=== PATIENT | female | born 1995 | race Caucasian/White ===

== ENCOUNTER 2018-08-08 15:58 | Outpatient (REF) | payer OTHER, SELFPAY | END 2018-08-08 16:18 | LOC: LBN 15:58 | PROVIDERS: Visit Provider Nurse Practitioner Gerontology | DX: R30.0 Dysuria (principal); R10.2 Pelvic and perineal pain | CPT/HCPCS: 87480; 87510; 87660 ==

== ENCOUNTER 2021-08-28 16:59 | Outpatient (REF) | payer SELFPAY | END 2021-08-28 17:00 | disposition home or self-care (01) | LOC: LBN 16:59 | PROVIDERS: Visit Provider Obstetrics & Gynecology | DX: R30.0 Dysuria (principal) | CPT/HCPCS: 87077; 87086; 87186 ==

== ENCOUNTER 2021-11-16 16:33 | Outpatient (REF) | payer SELFPAY | END 2021-11-16 16:34 | disposition home or self-care (01) | LOC: LBN 16:33 | PROVIDERS: Visit Provider Obstetrics & Gynecology Gynecology | DX: R30.0 Dysuria (principal) | CPT/HCPCS: 87086 ==

== ENCOUNTER 2023-04-14 11:29 | Emergency (ER) | payer SELFPAY ==
[2023-04-14 11:36] VITALS: BP 124/73; PULSE 91; RESP 15; TEMP 37.1; O2SAT 98
--- NOTE | 2023-04-14 13:14 | W.ED.GENAD ---
Discharge Plan Disposition Patient Disposition: Home Condition: Stable Discharge Details Clinical Impression: Pharyngitis Primary Care Provider: Unknown,Unknown ED Provider: Jerzy Tamayo Home Meds and New Rx's Prescriptions: Continued nitrofurantoin macrocrystal 100 mg capsule 100 mg PO .COMPLEX Qty: 30 2RF Rx Instructions: 100 mg PO after intercourse; must administer with a meal/food Discharge Instructions Instructions: Pharyngitis (ED) Additional Instructions: Please take ibuprofen over the counter. Take 600mg by mouth every 6 hours as needed for pain. Perform salt water gargles multiple times a day over the next 1 week. Please contact your primary care physician to arrange follow-up. Return to the ER immediately for any worsening or new concerning symptoms. Discharge Data Discharge Date/Time-TO BE ENTERED AT DEPARTURE: 04/14/23 13:35 Medical Decision Making 27-year-old female here with pharyngitis. Rapid strep test negative. Suspect viral pharyngitis. Supportive care recommended. Usual customary discharge instructions were reviewed. HPI General Mode of arrival: ambulatory. Date/Time Provider Initiated Documentation: 04/14/23 13:14. Limitations to Documentation: no limitations. Information obtained by: patient. HPI Narrative: 27-year-old female presents with chief complaint of sore throat. Sore throat started yesterday. No fever. No rash. No ear pain. No neck pain. Sore throat is localized to left greater than right. Patient has noticed some white spots in her throat. Related Data Home Medications Medication Instructions Recorded Confirmed nitrofurantoin macrocrystal 100 mg 100 mg PO .COMPLEX #30 caps 11/16/21 04/14/23 capsule Previous Rx's Medication Instructions Recorded nitrofurantoin macrocrystal 100 mg 100 mg PO .COMPLEX #30 caps 11/16/21 capsule Allergies Allergy/AdvReac Type Severity Reaction Status Date / Time No Known Allergies Allergy Unverified 04/14/23 13:16 General Stated Complaint: Sorethroat ANNE: 4 Review of Systems All systems reviewed & are unremarkable except as noted in HPI and below Constitutional Constitutional: Denies fever(s) ENT Ears, Nose, Mouth, and Throat: Reports as per HPI PFSH All Active Problems (Updated 04/14/23 @ 13:15 by Jerzy Tamayo MD) Pharyngitis (Acute) Abscess of left groin (Acute) Labial cyst (Acute) Frequent loose stools (Acute) I recommended patient obtain a PCP now that she has insurance. Dysuria (Acute) Medical History Hx of urinary tract infection 08/2021 UCx: EColi. 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 Rx emperically. Begin nitrofurantoin for postcoital prophylaxis. 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 Sexually active: Yes Do you feel safe in your relationship?: Yes Exam Const General: cooperative and no acute distress [facility] General nose exam: external nose normal Mouth: moist mucous membranes Throat: uvula midline, no peritonsillar masses, posterior oropharynx abnormal erythema and exudates (mild) and no uvular edema Other: no stridor or trismus Eyes Conjunctivae: normal conjunctivae Sclera: normal sclerae Neck Neck: trachea midline and supple Resp Auscultation: clear to auscultation bilaterally, no rales, no rhonchi and no wheezes Cardio Rate: regular rate and not tachycardic Rhythm: regular rhythm Skin General skin exam: no rashes or lesions noted Neuro General: patient alert, patient awake and tone normal Course Vital Signs Vital signs: Vital Signs Temperature 37.1 C 04/14/23 11:36 Pulse 91 H 04/14/23 11:36 Respiratory Rate 15 04/14/23 11:36 Blood Pressure 124/73 04/14/23 11:36 Pulse Oximetry 98 04/14/23 11:36 Temperature 37.1 C 04/14/23 11:36 Temperature Source Temporal Artery Scan 04/14/23 11:36 Pulse 91 H 04/14/23 11:36 Respiratory Rate 15 04/14/23 11:36 Blood Pressure 124/73 04/14/23 11:36 Blood Pressure Position Sitting 04/14/23 11:36 Pulse Oximetry 98 04/14/23 11:36 Oxygen Delivery Method Room Air 04/14/23 11:36 Oxygen Flow Rate 0 04/14/23 11:36 Pain Level 8 08/24/23 11:36 Lab/Test Results Lab/Test Results: 04/14/23 11:39 Tonsil - Not Specified Group A Streptococcus Culture - Pending POC Strep Test-MAGDI(Rapid) Start: 04/14/23 11:48 Freq: .Rapid Strep Test Status: Active Protocol: Document 04/14/23 11:48 MARYAM (Rec: 04/14/23 11:48 MARYAM [id number]) Strep test-MAGDI(Rapid)-POC POC-Strep test-MAGDI (Rapid) Negative POC-Strep test-MAGDI (Rapid) Negative
--- NOTE | 2023-04-14 13:18 | NUR.NOTE ---
Referral given to Care Management for needs PCP, routine follow up. Nursing Note:
[2023-04-14] MEDS: Ibuprofen 600 MG TAB PO (13:19)
--- NOTE | 2023-04-16 11:20 | W.EDPROG ---
Date of service: 04/16/23 Time of Service: 11:20 Medical Decision Making On my shift this patient had a positive result on the callback list as she had strep pharyngitis. She was observed off of antibiotics it appears at her index visit. I attempted to call patient at home to alert her of her result and call in a prescription for penicillin and dexamethasone. Unfortunately the patient did not answer. I did leave her message and requested that she call back to the emergency department. I also called her emergency contact, her mother. I requested that her mother sent her a text with the phone number for the emergency department. I will leave her results on the clipboard for follow-up. Discharge Plan Disposition Patient Disposition: Home Condition: Stable Discharge Details Clinical Impression: Pharyngitis Primary Care Provider: Unknown,Unknown ED Provider: Jerzy Tamayo Home Meds and New Rx's Prescriptions: Continued nitrofurantoin macrocrystal 100 mg capsule 100 mg PO .COMPLEX Qty: 30 2RF Rx Instructions: 100 mg PO after intercourse; must administer with a meal/food Discharge Instructions Instructions: Pharyngitis (ED) Additional Instructions: Please take ibuprofen over the counter. Take 600mg by mouth every 6 hours as needed for pain. Perform salt water gargles multiple times a day over the next 1 week. Please contact your primary care physician to arrange follow-up. Return to the ER immediately for any worsening or new concerning symptoms. Discharge Data Discharge Date/Time-TO BE ENTERED AT DEPARTURE: 04/14/23 13:35
--- NOTE | 2023-04-16 11:24 | ED.PROG_ITS ---
Date of service: 04/16/23 Time of Service: 11:24 Medical Decision Making Patient called back to the emergency department. She reported that she was feeling slightly better. I called [facility] in [place] to prescribe her penicillin V 500 mg twice daily for 10 days in addition to 10 mg oral dexamethasone one-time for her beta-hemolytic strep pharyngitis. I advised ED return if she had difficulty handling her secretions could not tolerate her antibiotics as result of nausea or vomiting or if she had any other concerns. She understood her return indications. Discharge Plan Disposition Patient Disposition: Home Condition: Stable Discharge Details Clinical Impression: Pharyngitis Primary Care Provider: Unknown,Unknown ED Provider: Jerzy Tamayo Home Meds and New Rx's Prescriptions: Continued nitrofurantoin macrocrystal 100 mg capsule 100 mg PO .COMPLEX Qty: 30 2RF Rx Instructions: 100 mg PO after intercourse; must administer with a meal/food Discharge Instructions Instructions: Pharyngitis (ED) Additional Instructions: Please take ibuprofen over the counter. Take 600mg by mouth every 6 hours as needed for pain. Perform salt water gargles multiple times a day over the next 1 week. Please contact your primary care physician to arrange follow-up. Return to the ER immediately for any worsening or new concerning symptoms. Discharge Data Discharge Date/Time-TO BE ENTERED AT DEPARTURE: 04/14/23 13:35
== END 2023-04-14 13:35 | disposition home or self-care (01) ==
PROVIDERS: Emergency Provider Student in an Organized Health Care Education/Training Program
DX: J02.9 Acute pharyngitis, unspecified (principal)
CPT/HCPCS: 87880; 99284; 87081

== ENCOUNTER 2023-05-27 14:28 | Emergency (ER) | payer SELFPAY ==
[2023-05-27 14:34] VITALS: BP 123/72; PULSE 70; RESP 16; TEMP 37.1; O2SAT 98
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
[2023-05-27] MEDS: Ibuprofen 800 MG TAB PO (14:56)
[2023-05-27] MEDS: Acetaminophen 500 MG TAB 1000 MG PO (14:56)
[2023-05-27] MEDS: Lidocaine 5% Patch 1 PATCH TP (14:56)
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
[2023-05-27 16:26] VITALS: BP 128/80; PULSE 72; RESP 20; O2SAT 99
== END 2023-05-27 16:30 | disposition home or self-care (01) ==
PROVIDERS: Emergency Provider Student in an Organized Health Care Education/Training Program
DX: S43.402A Unspecified sprain of left shoulder joint, initial encounter (principal); V47.0XXA Car driver injured in collision with fixed or stationary object in nontraffic accident, initial encounter
CPT/HCPCS: 81025; 99283; 73030

== ENCOUNTER 2023-12-12 06:52 | Emergency (ER) | payer SELFPAY ==
[2023-12-12 06:57] VITALS: BP 126/80; PULSE 132; RESP 18; TEMP 37.1; O2SAT 96
--- NOTE | 2023-12-12 07:17 | W.ED.GENAD ---
Discharge Plan Disposition Patient Disposition: Home Condition: Good Discharge Details Clinical Impression: Strep pharyngitis Primary Care Provider: Unknown,Unknown ED Provider: Ben Ramos Home Meds and New Rx's Prescriptions: New penicillin V potassium 500 mg tablet 500 mg PO BID 7 Days Qty: 14 0RF Discharge Instructions Instructions: Strep Throat (ED) Additional Instructions: At this time you have strep throat with mild tonsillar irritation. Please take 800 mg of ibuprofen every 6 hours and 1000 mg of Tylenol as needed for pain. These are the maximum doses. Please take the antibiotic as directed. Is been sent to your pharmacy on file. If you notice any worsening of your symptoms, or any new symptoms such as vomiting, diarrhea, fever, chills, shortness of breath, chest pain, numbness, weakness, or fainting , please return immediately to the emergency department for reevaluation. Please follow up with your primary care provider as soon as possible for reassessment and reevaluation. As always, it was a pleasure participating in your medical care today. Stand Alone Forms: Work Release Discharge Data Discharge Date/Time-TO BE ENTERED AT DEPARTURE: 12/12/23 09:06 HPI General Date/Time Provider Initiated Documentation: 12/12/23 07:15. HPI Narrative: 28-year-old female with no significant past medical history who presents today for evaluation of sore throat. Patient states that has been present for the last 24 to 36 hours. She admits to chills, she denies vomiting or diarrhea. Mild pain with sore throat, no difficulty swallowing or drinking aside from mild pain. She denies chest pain or shortness of breath. No severe fatigue, no recent mono contacts. She has not taken any NSAIDs for pain. No other complaints at this time. Related Data Home Medications Medication Instructions Recorded Confirmed penicillin V potassium 500 mg 500 mg PO BID 7 days #14 tabs 12/12/23 tablet Previous Rx's Medication Instructions Recorded penicillin V potassium 500 mg 500 mg PO BID 7 days #14 tabs 12/12/23 tablet Allergies Allergy/AdvReac Type Severity Reaction Status Date / Time No Known Allergies Allergy Unverified 12/12/23 06:59 General Stated Complaint: GenMedical ANNE: 3 Review of Systems All systems reviewed & are unremarkable except as noted in HPI and below Exam Narrative Exam Narrative: 1.Const: Well-nourished, Well-developed, appearing stated age 2.Eyes: PERRL, no conjunctival injection, and symmetrical lids. 3.ENT: Atraumatic external nose and ears. Moist MM. Neck: Symmetric, trachea midline, No thyromegaly. Mild erythema in the posterior oropharynx. Tonsils are mild John enlarged, at a grade 3. They are not touching, uvula is midline. No uvular deviation. Mild exudate is noted on posterior left tonsil. 4.CVS: +S1/S2, No murmurs or gallops. Peripheral pulses 2+ and equal in all extremities. Brisk capillary refill in all extremities. 5.RESP: Unlabored respiratory effort. Clear to auscultation bilaterally. No wheezes rales or rhonchi 6.GI: Soft, Nontender/Nondistended, No hepatosplenomegaly. No guarding or rebound. 7.MSK: Normocephalic/Atraumatic, Extremities w/o deformity or ttp No cyanosis or clubbing, Normal movement of all extremities 8.Skin: Warm, Dry. No rashes or lesions. 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 Sensation grossly intact, no focal neurologic deficits. 10.Psych: (AAO) x3. Appropriate mood and affect Course Vital Signs Vital signs: Vital Signs Temperature 37.1 C 12/12/23 06:57 Pulse 132 H 12/12/23 06:57 Respiratory Rate 18 12/12/23 06:57 Blood Pressure 126/80 12/12/23 06:57 Pulse Oximetry 96 12/12/23 06:57 Temperature 37.1 C 12/12/23 06:57 Pulse 132 H 12/12/23 06:57 Respiratory Rate 18 12/12/23 06:57 Blood Pressure 126/80 12/12/23 06:57 Blood Pressure Position Sitting 12/12/23 06:57 Pulse Oximetry 96 12/12/23 06:57 Medical Decision Making 28-year-old female with no significant past medical history who presents today for evaluation of sore throat. Patient states that has been present for the last 24 to 36 hours. She admits to chills, she denies vomiting or diarrhea. Mild pain with sore throat, no difficulty swallowing or drinking aside from mild pain. She denies chest pain or shortness of breath. No severe fatigue, no recent mono contacts. She has not taken any NSAIDs for pain. No other complaints at this time. Exam demonstrates well-appearing female, no nuchal rigidity, tonsils are grade 3 with mild exudate on the left. No urinary symptoms to suggest UTI, no nuchal rigidity to suggest meningitis, no evidence of peritonsillar abscess. Symptoms appear consistent with mild tonsillitis. Patient is tachycardic, does feel notably warm to the touch. Will give Toradol and Decadron for fever and sore throat, will check for mono get basic labs give her liter of lactated Ringer's, check for strep monitor closely and reassess. Laboratory workup is returned, patient's strep test is positive. Will treat with penicillin for home use. Patient feels much better after steroids and Toradol. Tachycardia has notably improved. Blood pressure stable. Symptoms inconsistent with Ludewig's angina, peritonsillar abscess, or other life-threatening etiology at this time. Discussed red flags for which to return. I have extensively reviewed the treatment plan and discharge instructions with the patient. I have addressed all patient concerns at this time. The patient was made aware of what symptoms to monitor for that would warrant a return to the emergency department. Discussed the plan with the patient, they demonstrate verbal understanding and agreement with our assessment and plan at this time. The documentation in this chart was dictated using [employer] dictation software. Please excuse any dictation errors. Quality:SDOH Health Related Social Needs: Health related social needs risk of homeless PFSH All Active Problems (Updated 12/12/23 @ 07:47 by Ben Ramos DO) Strep pharyngitis (Acute) Abscess of left groin (Acute) Labial cyst (Acute) Frequent loose stools (Acute) I recommended patient obtain a PCP now that she has insurance. Dysuria (Acute) Medical History Hx of urinary tract infection 08/2021 UCx: EColi. 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 Rx emperically. Begin nitrofurantoin for postcoital prophylaxis. Social History Smoking/Tobacco Use Status: Current every day Smoking risk assessment performed?: Yes Alcohol Intake: current Alcohol Intake frequency: a few times a month Drug use: Never Housing: house Number of Children: 0 Education Level: high school Details: [employer] current occupation: [employer] Sexually active: Yes Do you feel safe in your relationship?: Yes
[2023-12-12 07:35] LABS: HCT 43.8 % (36.0-46.0); HGB 14.5 g/dL (11.2-15.7); MCH 28.6 pg (27.0-33.0); MCHC 33.1 % (32.0-36.0); MCV 86 fL (80-95); MPV 9.7 fL (8.0-11.0); Platelet Count 359 10^3/uL (130-400); RBC 5.07 10^6/uL (3.93-5.22); RDW 13.1 % (11.7-14.6); RDW-SD 40.5 fL; WBC 21.31 10^3/uL (4.4-10.8)
[2023-12-12] MEDS: Lactated Ringers 1,000 ML 1000 ML IV (07:35)
[2023-12-12] MEDS: Dexamethasone 10 MG/ML VIAL IVP (07:35)
[2023-12-12] MEDS: Ketorolac 15 MG/ML VIAL IVP (07:35)
[2023-12-12 07:39] VITALS: BP 126/80; PULSE 132; RESP 18; TEMP 37.1; O2SAT 96
[2023-12-12 07:50] LABS: Mono Screening Negative (Negative)
[2023-12-12] MEDS: cefTRIAXone 1 GM/50 ML BAG IVPB (07:55)
[2023-12-12 07:56] LABS: ALT 46 U/L (14-59); AST 25 U/L (15-37); Albumin 3.5 g/dL (3.4-5.0); Alkaline Phosphatase 104 U/L (46-116); Anion Gap 13.6 mmol/L (3-11); BUN 10 mg/dL (7-18); Bilirubin, Total 0.8 mg/dL (0.2-1.0); CO2 21.4 mmol/L (21.0-32.0); CREATININE 1.2 mg/dL (0.55-1.02); Calcium 8.9 mg/dL (8.5-10.1); Chloride 99 mmol/L (98-107); Estimated GFR 63.23 (mL/min/1.73m2); Glucose 183 mg/dL (74-106); Potassium 4.1 mmol/L (3.5-5.1); Sodium 134 mmol/L (136-145); Total Protein 8.2 g/dL (6.4-8.2)
[2023-12-12 08:06] LABS: Absolute Neutrophil Count 17.69 10^3/uL (1.2-6.7)
[2023-12-12 08:07] LABS: Absolute Monocyte Count 1.92 10^3/uL (0.1-0.8); Atypical Lymphocytes % 3
[2023-12-12 08:08] LABS: Diff Comment Manual Differential; RBC Morphology Normal
[2023-12-12 08:18] VITALS: BP 106/60; PULSE 98; RESP 18; TEMP 38.2
[2023-12-12] MEDS: Acetaminophen 500 MG TAB 1000 MG PO (08:58)
== END 2023-12-12 09:06 | disposition home or self-care (01) ==
LOC: ER 07:59
PROVIDERS: Emergency Provider Student in an Organized Health Care Education/Training Program
DX: J02.0 Streptococcal pharyngitis (principal)
CPT/HCPCS: 36415; 80053; 87040; 96365; 96375; 99284; 85025; 86308; 87081; J0696; J1100; J1885

== ENCOUNTER 2024-10-22 02:06 | Outpatient (CLI) | payer SELFPAY ==
[2024-10-22 15:58] LABS: Panorama Kit Sent via Fed Ex
[2024-10-22 16:04] LABS: Abs Immature Grans 0.04 10^3/uL (0.0-0.06); Absolute Basophil Count 0.06 10^3/uL (0.0-0.2); Absolute Lymphocyte Count 2.16 10^3/uL (1.2-3.4); Absolute Monocyte Count 1.12 10^3/uL (0.1-0.8); Basophils % 0.5 %; Eosinophils % 2.1 %; HCT 37.1 % (36.0-46.0); HGB 12.5 g/dL (11.2-15.7); Immature Grans % 0.3 %; Lymphocytes % 17.1 %; MCH 28.7 pg (27.0-33.0); MCHC 33.7 % (32.0-36.0); MCV 85 fL (80-95); MPV 9.8 fL (8.0-11.0); Monocytes % 8.9 %; Neutrophils % 71.1 %; Platelet Count 323 10^3/uL (130-400); RBC 4.36 10^6/uL (3.93-5.22); RDW 12.4 % (11.7-14.6); RDW-SD 38.5 fL; WBC 12.64 10^3/uL (4.4-10.8)
[2024-10-22 16:07] LABS: Absolute Eosinophil Count 0.27 10^3/uL (0.0-0.7); Absolute Neutrophil Count 8.99 10^3/uL (1.2-6.7)
[2024-10-22 16:10] LABS: Hemoglobin A1C 5.4 % (<5.7)
[2024-10-23 18:19] LABS: Hepatitis B Surface Ag Negative (Negative)
[2024-10-23 18:49] LABS: Hepatitis C Ab w Rflx HCV PCR Negative (Negative)
[2024-10-23 19:09] LABS: HIV-1/2 Ag & Ab Screen Negative (Negative)
[2024-10-24 10:29] LABS: Rubella IgG Ab (UVM) Negative (See Note); Varicella IgG Antibody Positive (See Note)
[2024-10-26 15:53] LABS: Syphilis IgG w/Reflex Nonreactive (Nonreactive)
== END 2024-10-22 02:07 | disposition home or self-care (01) ==
PROVIDERS: Visit Provider Advanced Practice Midwife
DX: Z34.91 Encounter for supervision of normal pregnancy, unspecified, first trimester (principal); Z68.32 Body mass index [BMI] 32.0-32.9, adult
CPT/HCPCS: 36415; 86787; 86803; 86850; 86900; 86901; 87340; 87389; 87491; 87591; 83036; 85025; 86762; 86780

== ENCOUNTER 2024-10-22 15:37 | Outpatient (REF) | payer SELFPAY ==
[2024-10-24 13:38] LABS: Chlamydia Result Negative (Negative); GC Result Negative (Negative)
== END 2024-10-22 15:38 | disposition home or self-care (01) ==
LOC: LBN 15:37
PROVIDERS: Visit Provider Advanced Practice Midwife
DX: Z34.91 Encounter for supervision of normal pregnancy, unspecified, first trimester (principal)
CPT/HCPCS: 87491; 87591; 87086

== ENCOUNTER 2024-12-14 00:10 | Outpatient (CLI) | payer MEDICAID, SELFPAY ==
--- NOTE | 2024-12-14 06:30 | DI.US_ITS ---
Exam(s) US OB 2-3 TRIMESTER EXAM: US OB 2-3 TRIMESTER CLINICAL HISTORY: anatomy survey,z34.91. TECHNIQUE: Transabdominal obstetrical ultrasound was performed. COMPARISON: US POCUS EXAM from 11/23/2024 FINDINGS: There is a single viable intrauterine gestation with cardiac activity identified-134 bpm. Amniotic fluid: There is a normal amount of amniotic fluid. Placental location: The placenta is anterior grade 1,with no evidence of placenta previa.This from th e tip of placenta to the internal cervical os is 3 cm. The distance between the placental insertion of the umbilical cord and the margin of the placenta is 4.7 cm. ANATOMY: A 3 vessel umbilical cord is seen. A four-chamber cardiac view was obtained. Right and left ventricular outflow tracts were imaged. There are no obvious abnormalities of the spinal column evident. There is no obvious abnormal ity of the anterior abdominal wall. stomach and urinary bladder are identified and there is no evidence of hydronephrosis. No abnormalities of the upper lip region are identified. No evidence of choroid plexus cysts i n the brain. Dating parameters place this at approximately 20 weeks and 1 day gestational age. BPD measures 19 weeks and 4 days HC measures 20 weeks and 0 days AC measures 21 weeks and 0 days FL measures 20 weeks and 0 days Estimated weight is 355 gm-0 pounds 13 ounces Fetus is at the greater than 97th percentile on the Hadlock scale. IMPRESSION:: Single viable intrauterine gestation which is approximately 20 weeks and 1 day gestatio nal age, implying an DIA of 05/02/2025. There are no obvious anomalies evident on today's study. The placenta is anterior with no evidence of placenta previa. There is a normal amount of amniotic fluid. DATA REPOSITORY:
== END 2024-12-14 00:30 ==
PROVIDERS: Visit Provider Advanced Practice Midwife
DX: Z34.92 Encounter for supervision of normal pregnancy, unspecified, second trimester (principal); Z3A.20 20 weeks gestation of pregnancy
CPT/HCPCS: 76805

== ENCOUNTER 2025-02-08 01:00 | Outpatient (CLI) | payer MEDICAID, SELFPAY ==
[2025-02-08 10:44] LABS: HCT 33.6 % (36.0-46.0); HGB 10.8 g/dL (11.2-15.7); MCH 27.6 pg (27.0-33.0); MCHC 32.1 % (32.0-36.0); MCV 86 fL (80-95); MPV 9.8 fL (8.0-11.0); Platelet Count 317 10^3/uL (130-400); RBC 3.92 10^6/uL (3.93-5.22); RDW 12.5 % (11.7-14.6); RDW-SD 38.9 fL; WBC 10.79 10^3/uL (4.4-10.8)
[2025-02-08 11:08] LABS: Glucose,1 Hr (Glucola) 163 mg/dL (80-140)
== END 2025-02-08 01:01 | disposition home or self-care (01) ==
LOC: LBO 01:00
PROVIDERS: Advanced Practice Midwife; Visit Provider Advanced Practice Midwife
DX: Z34.92 Encounter for supervision of normal pregnancy, unspecified, second trimester (principal)
CPT/HCPCS: 36415; 82950; 85027

== ENCOUNTER 2025-02-15 00:44 | Outpatient (CLI) | payer MEDICAID, SELFPAY ==
[2025-02-15 10:45] LABS: Glucose 1 Hour 198 mg/dL
[2025-02-15 12:43] LABS: Glucose 3 Hour 128 mg/dL
== END 2025-02-15 00:45 | disposition home or self-care (01) ==
LOC: LBO 00:44
PROVIDERS: Visit Provider Advanced Practice Midwife
DX: Z34.92 Encounter for supervision of normal pregnancy, unspecified, second trimester (principal)
CPT/HCPCS: 36415; 82951

== ENCOUNTER 2025-02-20 18:12 | Outpatient (CLI) | payer MEDICAID, SELFPAY ==
[2025-02-20 18:23] VITALS: PULSE 83; O2SAT 96
[2025-02-20 18:26] VITALS: BP 112/64; PULSE 78
[2025-02-20 18:32] VITALS: BP 112/64; PULSE 78
--- NOTE | 2025-02-20 19:18 | W.OBNST ---
Date of service: 02/20/25 Time of Service: 19:18 NST Evaluation Reason for NST Reasons for Nonstress Test: DECREASED MOVEMENT Gestational Age Gestational Age in Weeks and Days: 28 Weeks and 6Days Test and Monitor Explained Test/Monitor Explained: Test Explained, Monitor Explained and Patient Verbalized Understanding Vital Signs Blood Pressure: 112/64 Pulse: 78 Urine Results Urine Protein: Negative Urine Ketones: Positive Urine Glucose: Negative Urine Blood: Negative NST Information Date on Monitor: 02/20/25 Time on Monitor: 18:20 Date off Monitor: 02/20/25 Time off Monitor: 19:19 Total Time on Monitor: 59 NST Interventions: PO Hydration and Notify Provider Contraction Frequency: mild irreg NST Evaluation Patient States Movement: Present FHR Baseline: 130 Variability: Moderate 6-25 bpm Accelerations: 10x10 Decelerations: None NST Results: Reactive Note Ultrasound Done: N/A. NST Note NST Reviewed and Verified by: Leanne Del Rosario
[2025-02-20 19:19] VITALS: BP 112/64; PULSE 78
== END 2025-02-20 19:31 | disposition home or self-care (01) ==
LOC: BCD 18:15 → OBS 18:20
PROVIDERS: Visit Provider Advanced Practice Midwife
DX: O36.8131 Decreased fetal movements, third trimester, fetus 1 (principal); Z3A.28 28 weeks gestation of pregnancy
CPT/HCPCS: 59025; G0378

== ENCOUNTER 2025-03-01 01:10 | Outpatient (CLI) | payer MEDICAID, SELFPAY ==
--- NOTE | 2025-03-05 10:44 | W.NUTRFU ---
Date of service: 03/01/25 Time of Service: 09:00 Nutrition Note NOTE: Mari referred to nutrition appt regarding help with diet after dx of gestational diabetes. pt is ~30weeks at out visit and checking her glucose fasting and 1 hour PPG. Fastings pretty conssitent 85-90 with 1 hour PPG with a couple in the 150's and 160's - however she feels like she has made the connection between these outlying higher glucose reading and the type of meal/foods eaten prior. We reviewed handout with more attention spent on identifying carb sources and common serving sizes to equal ~15g CHO. Suggested about ~175g cho per day or ~11 servings per day. Stressed high fiber servings and avoiding starch and sugars without balancing them with lean protein and high fiber foods. Suggested she avoid fruit juice even if 100% and eat whole fruit. I showed her a meal planning resource which she can plug in target macros we reviewed and work towards eating more towards a pattern it demonstrates. Stressed keeping added sugars <20g per day and having 3g fiber or more for starch servings like bread crackers and such. Mari has my contact info should she have any questions or need for follow up or for insulin education should this be necessary at some point during her 3rd trimester. Time Spent in Nutritional Counseling and Treatment: 25 min
== END 2025-03-01 01:11 | disposition home or self-care (01) ==
LOC: DS 01:10
PROVIDERS: Visit Provider Dietitian, Registered
DX: O24.410 Gestational diabetes mellitus in pregnancy, diet controlled (principal)
CPT/HCPCS: 00123; 97802

== ENCOUNTER 2025-03-11 00:28 | Outpatient (CLI) | payer MEDICAID, SELFPAY ==
--- NOTE | 2025-03-11 09:10 | DI.US_ITS ---
Exam(s) US OB PABLITO WEIGHT EXAM: US OB PABLITO WEIGHT CLINICAL HISTORY: gestational diabetes,O24.419 in . TECHNIQUE: Transabdominal obstetrical ultrasound performed. COMPARISON: US US OB 2-3 TRIMESTER from 12/14/2024 FINDINGS:: Number of fetuses: 1 position: CEPHALIC Placental location: ANTERIOR, grade 1. No evidence of previa. BIOMETRIC DATA: BPD: 8.16cm, 32weeks 6days HC: 29.25cm, 32weeks 2days AC: 28.65cm, 32weeks 5days FL: 6.5cm, 33weeks 4days EFW: 2,071.76g, 4lb 8.91oz, 80.8% Composite Age: 32weeks 6days DIA: 04/30/2025 Heart Rate: 136bpm Amniotic fluid index: 26.35cm. Borderline polyhydramnios. IMPRESSION: Ultrasound composite age 32 weeks 6 days. Estimated weight 81 percent. Borderline polyhydramnios with PABLITO of 26.4. DATA REPOSITORY:
== END 2025-03-11 00:48 ==
PROVIDERS: Visit Provider Advanced Practice Midwife
DX: O24.410 Gestational diabetes mellitus in pregnancy, diet controlled (principal); Z3A.29 29 weeks gestation of pregnancy
CPT/HCPCS: 76816

== ENCOUNTER 2025-03-11 10:37 | Outpatient (CLI) | payer MEDICAID, SELFPAY ==
[2025-03-11 10:51] VITALS: BP 110/67; PULSE 59; TEMP 36.8
[2025-03-11 11:07] VITALS: BP 110/67; PULSE 59
[2025-03-11 13:53] VITALS: BP 110/67; PULSE 59; TEMP 36.8
--- NOTE | 2025-03-11 13:53 | W.OBNST ---
Date of service: 03/11/25 Time of Service: 13:53 NST Evaluation Reason for NST Reasons for Nonstress Test: POLYHYDRAMNIOS Gestational Age Gestational Age in Weeks and Days: 31 Weeks and 4Days Test and Monitor Explained Test/Monitor Explained: Test Explained, Monitor Explained and Patient Verbalized Understanding Vital Signs Blood Pressure: 110/67 Pulse: 59 Temperature: 98.2 F NST Information Date on Monitor: 03/11/25 Time on Monitor: 10:45 Date off Monitor: 03/11/25 Time off Monitor: 11:45 Total Time on Monitor: 60 NST Interventions: None NST Evaluation Patient States Movement: Present FHR Baseline: 135 Variability: Moderate 6-25 bpm Accelerations: 15x15 Decelerations: None NST Results: Reactive Note Ultrasound Done: N/A. NST Note NST Reviewed and Verified by: Leanne Del Rosario
== END 2025-03-11 11:45 | disposition other institution (70) ==
LOC: BCD 10:37 → OBS 10:50
PROVIDERS: Visit Provider Advanced Practice Midwife
DX: Z3A.31 31 weeks gestation of pregnancy (principal); O40.3XX1 Polyhydramnios, third trimester, fetus 1
CPT/HCPCS: 59025

== ENCOUNTER 2025-03-29 11:39 | Outpatient (CLI) | payer MEDICAID, SELFPAY ==
[2025-03-29 11:53] VITALS: BP 109/66; PULSE 71; PULSE 73
[2025-03-29 11:54] VITALS: PULSE 74; O2SAT 96
[2025-03-29 12:38] VITALS: BP 109/66; PULSE 71
--- NOTE | 2025-03-29 13:37 | W.OBNST ---
Date of service: 03/29/25 Time of Service: 13:37 NST Evaluation Reason for NST Reasons for Nonstress Test: GDM-DIET CONTROLLED and POLYHYDRAMNIOS Gestational Age Gestational Age in Weeks and Days: 34 Weeks and 1Days Test and Monitor Explained Test/Monitor Explained: Test Explained, Monitor Explained and Patient Verbalized Understanding Vital Signs Blood Pressure: 109/66 Pulse: 71 NST Information Date on Monitor: 03/29/25 Time on Monitor: 11:53 Date off Monitor: 03/29/25 Time off Monitor: 12:22 Total Time on Monitor: 29 NST Interventions: PO Hydration and Other Contraction Frequency: rare NST Evaluation Patient States Movement: Present FHR Baseline: 125 Variability: Moderate 6-25 bpm Accelerations: 15x15 Decelerations: None NST Results: Reactive Note Ultrasound Done: N/A. NST Note NST Reviewed and Verified by: Leanne Del Rosario
[2025-03-29 13:38] VITALS: BP 109/66; PULSE 71
== END 2025-03-29 12:25 ==
LOC: BCD 11:42 → OBS 11:48
PROVIDERS: Visit Provider Advanced Practice Midwife
DX: O24.410 Gestational diabetes mellitus in pregnancy, diet controlled (principal); O40.3XX1 Polyhydramnios, third trimester, fetus 1; Z3A.34 34 weeks gestation of pregnancy
CPT/HCPCS: 59025

== ENCOUNTER 2025-04-04 07:17 | Outpatient (CLI) | payer OTHER, MEDICAID, SELFPAY ==
[2025-04-04 15:23] VITALS: BP 115/62; PULSE 83
[2025-04-04 15:50] VITALS: BP 115/62; PULSE 83; RESP 16; TEMP 36.5
--- NOTE | 2025-04-05 10:04 | W.OBNST ---
Date of service: 04/04/25 Time of Service: 16:45 NST Evaluation Reason for NST Reasons for Nonstress Test: GDM-DIET CONTROLLED Gestational Age Gestational Age in Weeks and Days: 35 Weeks and 0Days Test and Monitor Explained Test/Monitor Explained: Test Explained, Monitor Explained and Patient Verbalized Understanding Vital Signs Blood Pressure: 115/62 Pulse: 83 Temperature: 97.7 F Urine Results Urine Protein: Negative Urine Ketones: Negative Urine Glucose: Negative Urine Blood: Negative NST Information Date on Monitor: 04/04/25 Time on Monitor: 15:15 Date off Monitor: 04/04/25 Time off Monitor: 15:50 Total Time on Monitor: 35 NST Interventions: PO Hydration NST Evaluation Patient States Movement: Present FHR Baseline: 125 Variability: Moderate 6-25 bpm Accelerations: 15x15 Decelerations: None NST Results: Reactive Note Ultrasound Done: N/A. NST Note Note: reactive NST. RTO weekly for NST due to polyhydramnios and GDM. NST Reviewed and Verified by: Shweta Jimenez
[2025-04-05 10:05] VITALS: BP 115/62; PULSE 83; TEMP 36.5
== END 2025-04-04 16:20 | disposition home health service (06) ==
LOC: BCD 07:19 → OBS 15:18
PROVIDERS: Visit Provider Advanced Practice Midwife
DX: O24.410 Gestational diabetes mellitus in pregnancy, diet controlled (principal); Z3A.35 35 weeks gestation of pregnancy
CPT/HCPCS: 59025

== ENCOUNTER 2025-04-08 01:46 | Outpatient (CLI) | payer OTHER, MEDICAID, SELFPAY ==
--- NOTE | 2025-04-08 06:30 | DI.US_ITS ---
Exam(s) US OB PABLITO WEIGHT EXAM: US OB PABLITO WEIGHT CLINICAL HISTORY: polyhydramnios,gest diabetes,O24.419. TECHNIQUE: Transabdominal obstetrical ultrasound was performed. COMPARISON: US US OB PABLITO WEIGHT from 03/11/2025 FINDINGS: There is a single viable intrauterine gestation with cardiac activity [id number] bpm The fetus is presently in cephalic position . Amniotic fluid: There is presently a normal amount of amniotic fluid with an PABLITO of 18.18cm. Placental location: The placenta is anterior grade 2,with no evidence of placenta previa. Dating parameters place this at approximately 35 weeks and 4 days gestational age, implying DIA of 05/09/2025. BPD measures 35 weeks and 1 day HC measures 35 weeks and 6 days AC measures 35 weeks and 2 days FL measures 36 weeks and 0 days Estimated weight is 2690 gm-5 pounds 15 ounces Fetus is at the 46th percentile on the Hadlock scale. IMPRESSION:: Viable 3rd trimester gestation, as described above. The amount of amniotic fluid is within normal limits. DATA REPOSITORY:
== END 2025-04-08 02:06 ==
PROVIDERS: Visit Provider Advanced Practice Midwife
DX: O24.410 Gestational diabetes mellitus in pregnancy, diet controlled (principal); Z3A.35 35 weeks gestation of pregnancy
CPT/HCPCS: 76816

== ENCOUNTER 2025-04-08 07:41 | Outpatient (CLI) | payer OTHER, MEDICAID, SELFPAY ==
[2025-04-08 10:57] VITALS: BP 112/68; PULSE 66; TEMP 36.8
[2025-04-08 11:00] VITALS: BP 112/68; PULSE 66
--- NOTE | 2025-04-08 12:55 | W.OBNST ---
Date of service: 04/08/25 Time of Service: 12:57 NST Evaluation Reason for NST Reasons for Nonstress Test: GDM-DIET CONTROLLED Gestational Age Gestational Age in Weeks and Days: 35 Weeks and 4Days Test and Monitor Explained Test/Monitor Explained: Test Explained, Monitor Explained and Patient Verbalized Understanding Vital Signs Blood Pressure: 112/68 Pulse: 66 Temperature: 98.2 F Urine Results Urine Protein: Positive Urine Ketones: Positive Urine Glucose: Negative Urine Blood: Negative NST Information Date on Monitor: 04/08/25 Time on Monitor: 10:57 Date off Monitor: 04/08/25 Time off Monitor: 11:55 Total Time on Monitor: 58 NST Interventions: PO Hydration and Reposition Patient Contraction Frequency: 4-7 min NST Evaluation Patient States Movement: Present FHR Baseline: 135 Variability: Moderate 6-25 bpm Accelerations: 15x15 Decelerations: None NST Results: Reactive Note Ultrasound Done: N/A. NST Note Note: Mari is here for weekly NST for GDM. US shows PABLITO 18. RTO for weekly NSTs. NST Reviewed and Verified by: Shweta Jimenez
[2025-04-08 12:56] VITALS: BP 112/68; PULSE 66; TEMP 36.8
== END 2025-04-08 12:42 ==
LOC: BCD 07:43 → OBS 10:51
PROVIDERS: Visit Provider Advanced Practice Midwife
DX: O24.410 Gestational diabetes mellitus in pregnancy, diet controlled (principal); Z3A.35 35 weeks gestation of pregnancy
CPT/HCPCS: 59025

== ENCOUNTER 2025-04-19 07:11 | Outpatient (CLI) | payer OTHER, MEDICAID, SELFPAY ==
[2025-04-19 10:59] VITALS: BP 118/66; PULSE 75; TEMP 37.2
[2025-04-19 11:12] VITALS: BP 118/66; PULSE 75
[2025-04-19 12:21] LABS: HCT 35.0 % (36.0-46.0); HGB 11.3 g/dL (11.2-15.7); MCH 26.8 pg (27.0-33.0); MCHC 32.3 % (32.0-36.0); MCV 83 fL (80-95); MPV 10.6 fL (8.0-11.0); Platelet Count 247 10^3/uL (130-400); RBC 4.21 10^6/uL (3.93-5.22); RDW 14.2 % (11.7-14.6); RDW-SD 42.8 fL; WBC 10.12 10^3/uL (4.4-10.8)
[2025-04-19 12:33] LABS: Hemoglobin A1C 5.5 % (<5.7)
[2025-04-19 12:43] VITALS: BP 118/66; PULSE 75; TEMP 37.2
--- NOTE | 2025-04-19 12:43 | W.OBNST ---
Date of service: 04/19/25 Time of Service: 12:43 NST Evaluation Reason for NST Reasons for Nonstress Test: GDM-DIET CONTROLLED Gestational Age Gestational Age in Weeks and Days: 37 Weeks and 1Days Test and Monitor Explained Test/Monitor Explained: Test Explained, Monitor Explained and Patient Verbalized Understanding Vital Signs Blood Pressure: 118/66 Pulse: 75 Temperature: 99.0 F Weight: 204 lb NST Information Date on Monitor: 04/19/25 Time on Monitor: 10:50 Date off Monitor: 04/19/25 Time off Monitor: 11:38 Total Time on Monitor: 48 NST Interventions: PO Hydration NST Evaluation Patient States Movement: Present FHR Baseline: 135 Variability: Moderate 6-25 bpm Accelerations: 15x15 Decelerations: None NST Results: Reactive Note Ultrasound Done: N/A. NST Note Note: Weekly NST NST Reviewed and Verified by: Leanne Del Rosario
== END 2025-04-19 12:16 | disposition other institution (70) ==
LOC: BCD 07:11 → OBS 10:52
PROVIDERS: Visit Provider Advanced Practice Midwife
DX: O24.410 Gestational diabetes mellitus in pregnancy, diet controlled (principal); Z3A.37 37 weeks gestation of pregnancy
CPT/HCPCS: 36415; 85027; 59025; 83036; 87081

== ENCOUNTER 2025-04-21 15:15 | Outpatient (CLI) | payer OTHER, MEDICAID, SELFPAY ==
[2025-04-21 15:35] VITALS: BP 126/76; PULSE 69; TEMP 37.2
[2025-04-21 15:44] VITALS: BP 126/76; PULSE 69
--- NOTE | 2025-04-21 16:00 | W.PM.PROGNOT ---
Date of Service Date of service: 04/21/25 Time of Service: 16:00 Assessment and Plan Assessment and plan (1) 37 weeks gestation of : Status: Acute (2) Migraine headache with aura: Status: Acute Assessment and plan: Clinical history and exam are consistent with migraine with aura. Differential diagnosis also includes pre-eclampsia. As she is normotensive, does not have hyperreflexia and has a history of migraines with aura, migraine is the favored diagnosis. Will obtain a PC ratio, CBC and CMP to further exclude PEC. In the meantime, will treat the headache with Tylenol and caffeine (through the route of 2 cups of coffee). Should this not work, could also try metoclopramide and diphenhydramine. Oral hydration and a quiet / dark environement were encouraged. surveillance is reassuring. Will assess status 1 hour after having taken Tylenol. Addendum 1704: 1 hour after receiving Tylenol and caffeine, Mari reports that her headache is fully resolved. She continues also to have full resolution of visual changes. Her blood pressure remains normal. PC ratio, CBC and CMP are all normal. Mari was reassured that trhe clinical picture remains consistent with a migraine, not PEC. She was advised to call again is she develops another headache or any other warnings signs. Otherwise, follow-up for routine care in 5 days. Subjective Subjective Interval history since last seen: Mari is a 29 year old at 37 weeks 3 days gestation who presents to L&D triage with complaints of visual changes and a headache. She describes that earlier this afternoon, she had right then bilateral visual changes like [she] had looked in the light too long, and blurry along the edges that resolved and were immediately followed by a strong headache. She has not taken anything for the headache. She has a history of migraines, though none have occurred since becoming . Some of her previous migraines were preceded by aura. She has only ever needed Tylenol in the past for treatment. She has no known triggers. ROS: Neuro: as above, notable for headche and now resolved visual changes GI: no upper abdominal pain CV: no edema OB: good FM, not aware of contractions, no LOF, no VB course is notable for: 1. Works at the [employer], referred to [employer] for Medicaid assistance 2. cfDNA nml male, wait on CF until has insurance 3. BMI 32, HgbA1c 5.4, start low dose ASA @ [address]+ 2 yrs ago, treated at [facility], initial neg 5. PT referral for low back pain sent 01/11 6. Pap due 7. Rectal bleeding with BM at 24 weeks- tucks and hemorrhoid cream with HC after every BM, exam if no improvement. 8. 27 wk glucola 163, 3 hr [phone], GDM @ 28 wks, start QID home monitoring, DM educator consult done 03/05. 8a. 32 week growth US- 80% ile, PABLITO 26, daily postprandial elevations reported in pt's log. - 03/22/25: pt made dietary changes and has almost all normal FS 9. Mild anemia at 27 wks, hgb 10.8, start oral iron supplement. At 37 wks hgb=11.3 10. Borderline Polyhydramnios - PABLITO 26, repeat US in 4 weeks. testing weekly at 34 weeks 10a. 04/08 -PABLITO 18 , EFW 46 %ile. Objective Last Vital Signs Pulse 69 04/21/25 15:44 BP 126/76 04/21/25 15:44 VS: normotensive Constitutional: well-nourished, well-developed, alert, NAD Respiratory: effort is unlabored Cardiovascular: trace edema bilateral LEXT Gastrointestinal: non-tender to palpation, tone normal without rigidity or guarding, no masses Genitourinary: - uterus: gravid, normal shape, contractions q 4-6 minutes, mild to palpation Neurologic: DTRs +1 left patella / +1 right patella, clonus absent right and left sides Skin and Subcutaneous Tissue: no rashes, no lesions, no areas of discoloration Fetus: - baseline 135, moderate variability, + accels, no decels Time Spent with Patient Time Spent with Patient: >50 minutes Time was spent: preparing to see the patient(eg.review tests), obtaining and/or reviewing separately otained hiistory, ordering medications,tests, procedures, indepentently interpreting results and counseling the patient
[2025-04-21] MEDS: Acetaminophen 500 MG TAB 1000 MG PO (16:06)
[2025-04-21 16:23] LABS: Abs Immature Grans 0.03 10^3/uL (0.0-0.06); HCT 35.9 % (36.0-46.0); HGB 11.6 g/dL (11.2-15.7); Immature Grans % 0.3 %; MCH 26.7 pg (27.0-33.0); MCHC 32.3 % (32.0-36.0); MCV 83 fL (80-95); MPV 10.4 fL (8.0-11.0); Platelet Count 257 10^3/uL (130-400); RBC 4.34 10^6/uL (3.93-5.22); RDW 14.2 % (11.7-14.6); RDW-SD 42.5 fL; WBC 9.93 10^3/uL (4.4-10.8)
--- NOTE | 2025-04-21 16:29 | W.OBNST ---
Date of service: 04/21/25 Time of Service: 16:29 NST Evaluation Reason for NST Reasons for Nonstress Test: OTHER, SEE COMMENT Reason for NST Other: Headache, r/o pre-eclampsia Gestational Age Gestational Age in Weeks and Days: 37 Weeks and 3Days Test and Monitor Explained Test/Monitor Explained: Test Explained and Monitor Explained Vital Signs Blood Pressure: 126/76 Pulse: 69 Temperature: 99.0 F Weight: 204 lb Urine Results Urine Protein: Negative Urine Ketones: Negative Urine Glucose: Negative Urine Blood: Negative NST Information Date on Monitor: 04/21/25 Time on Monitor: 15:40 NST Interventions: PO Hydration Note Ultrasound Done: N/A. NST Note Note: Reactive NST. See separate progress note. NST Reviewed and Verified by: Nivia Jones
[2025-04-21 16:31] VITALS: BP 126/76; PULSE 69; TEMP 37.2
[2025-04-21 16:39] LABS: ALT 24 U/L (14-59); AST 29 U/L (15-37); Albumin 2.5 g/dL (3.4-5.0); Alkaline Phosphatase 156 U/L (46-116); Anion Gap 11.6 mmol/L (3-11); BUN 6 mg/dL (7-18); Bilirubin, Total 0.4 mg/dL (0.2-1.0); CO2 21.4 mmol/L (21.0-32.0); Calcium 8.9 mg/dL (8.5-10.1); Chloride 104 mmol/L (98-107); Estimated GFR 130.12 (mL/min/1.73m2); Glucose 74 mg/dL (74-106); Potassium 3.7 mmol/L (3.5-5.1); Sodium 137 mmol/L (136-145); Total Protein 7.0 g/dL (6.4-8.2)
[2025-04-21 16:46] LABS: PROTEIN < 6.0 mg/dL
[2025-04-21 17:00] VITALS: BP 118/76; PULSE 64
[2025-04-22 08:22] VITALS: BP 117/66; PULSE 68
== END 2025-04-21 17:05 ==
LOC: BCD 15:16 → OBS 15:19
PROVIDERS: Visit Provider Advanced Practice Midwife
DX: Z3A.37 37 weeks gestation of pregnancy (principal); G43.109 Migraine with aura, not intractable, without status migrainosus; O99.891 Other specified diseases and conditions complicating pregnancy
CPT/HCPCS: 80053; 59025; 82565; 84156; 85025

== ENCOUNTER 2025-04-26 07:16 | Outpatient (CLI) | payer OTHER, MEDICAID, SELFPAY ==
[2025-04-26 11:12] VITALS: BP 109/60; PULSE 72; TEMP 37.1
[2025-04-26 11:14] VITALS: BP 109/60; PULSE 72
[2025-04-26 14:08] VITALS: BP 109/60; PULSE 72; TEMP 37.1
--- NOTE | 2025-04-26 14:08 | W.OBNST ---
Date of service: 04/26/25 Time of Service: 14:08 NST Evaluation Reason for NST Reasons for Nonstress Test: GDM-DIET CONTROLLED Gestational Age Gestational Age in Weeks and Days: 38 Weeks and 1Days Test and Monitor Explained Test/Monitor Explained: Test Explained and Monitor Explained Vital Signs Blood Pressure: 109/60 Pulse: 72 Temperature: 98.8 F Urine Results Urine Protein: Negative Urine Ketones: Negative Urine Glucose: Negative Urine Blood: Negative NST Information Date on Monitor: 04/26/25 Time on Monitor: 11:08 Date off Monitor: 04/26/25 Time off Monitor: 11:34 Total Time on Monitor: 26 NST Interventions: None NST Evaluation Patient States Movement: Present FHR Baseline: 135 Variability: Moderate 6-25 bpm Accelerations: 15x15 Decelerations: None NST Results: Reactive Note Ultrasound Done: N/A. NST Note Note: Plan for NST/PABLITO next week IOL tentatively scheduled for 05/08 NST Reviewed and Verified by: Leanne Del Rosario
== END 2025-04-26 11:35 ==
LOC: BCD 07:17 → OBS 11:06
PROVIDERS: Visit Provider Advanced Practice Midwife
DX: O24.410 Gestational diabetes mellitus in pregnancy, diet controlled (principal); Z3A.38 38 weeks gestation of pregnancy
CPT/HCPCS: 59025

== ENCOUNTER 2025-05-03 07:23 | Outpatient (CLI) | payer OTHER, MEDICAID, SELFPAY ==
[2025-05-03 11:00] VITALS: BP 117/75; PULSE 78; TEMP 37.1
[2025-05-03 11:20] VITALS: BP 117/75; PULSE 78
--- NOTE | 2025-05-03 11:49 | W.OBNST ---
Date of service: 05/03/25 Time of Service: 11:49 NST Evaluation Reason for NST Reasons for Nonstress Test: GDM-DIET CONTROLLED Gestational Age Gestational Age in Weeks and Days: 39 Weeks and 1Days Test and Monitor Explained Test/Monitor Explained: Test Explained, Monitor Explained and Patient Verbalized Understanding Vital Signs Blood Pressure: 117/75 Pulse: 78 Temperature: 98.8 F Weight: 204 lb 8 oz Urine Results Urine Protein: Negative Urine Ketones: Negative Urine Glucose: Negative Urine Blood: Negative NST Information Date on Monitor: 05/03/25 Time on Monitor: 11:05 Date off Monitor: 05/03/25 Time off Monitor: 11:34 Total Time on Monitor: 29 NST Interventions: PO Hydration NST Evaluation Patient States Movement: Present FHR Baseline: 135 Variability: Moderate 6-25 bpm Accelerations: 15x15 Decelerations: None NST Results: Reactive NST Results Other: Dr. Paige in for PABLITO. Note Ultrasound Done: PABLITO Indication: Other Largest Vertical Pocket: 7.3 Total PABLITO: 17.4 Other Pertinent Findings: Presentation (Cephalic) Coding for PABLITO w/NST: Completed Exam. NST Note Note: Has a category 1, reactive NST with a heart rate baseline of 135. Baby's been moving and active. She has occasional irregular contractions. Cervical exam performed at patient's request. A 1 cm 50%, soft, mid position. Patient reports good glycemic control with fasting sugars of less than 90 and 1 hour postprandials of less than 140. Information to thermostatic controls supervisor for plan of care and potential induction NST Reviewed and Verified by: Salena Paige
[2025-05-03 11:51] VITALS: BP 117/75; PULSE 78; TEMP 37.1
--- NOTE | 2025-05-03 21:41 | W.OBNST ---
Date of service: 05/03/25 Time of Service: 21:43 NST Evaluation Reason for NST Reasons for Nonstress Test: GDM-DIET CONTROLLED Gestational Age Gestational Age in Weeks and Days: 39 Weeks and 1Days Test and Monitor Explained Test/Monitor Explained: Test Explained, Monitor Explained and Patient Verbalized Understanding Vital Signs Blood Pressure: 117/75 Pulse: 78 Temperature: 98.8 F Weight: 204 lb 8 oz Urine Results Urine Protein: Negative Urine Ketones: Negative Urine Glucose: Negative Urine Blood: Negative NST Information Date on Monitor: 05/03/25 Time on Monitor: 11:05 Date off Monitor: 05/03/25 Time off Monitor: 11:34 Total Time on Monitor: 29 NST Interventions: PO Hydration NST Evaluation Patient States Movement: Present FHR Baseline: 135 Variability: Moderate 6-25 bpm Accelerations: 15x15 Decelerations: None NST Results: Reactive NST Results Other: Dr. Paige in for PABLITO. Note Ultrasound Done: N/A. NST Note Note: Mari is here for NST for GDM. Reactive NST. PABLITO performed by Dr Paige an it was 7. I discussed IOL with Mari due to GDM and it is scheduled for 05/08. SVE performed by Dr Paige. 1/50% NST Reviewed and Verified by: Shweta Jimenez
[2025-05-03 21:43] VITALS: BP 117/75; PULSE 78; TEMP 37.1
== END 2025-05-03 12:31 | disposition other institution (70) ==
LOC: BCD 07:26 → OBS 10:58
PROVIDERS: Visit Provider Advanced Practice Midwife
DX: O24.410 Gestational diabetes mellitus in pregnancy, diet controlled (principal); Z3A.39 39 weeks gestation of pregnancy
CPT/HCPCS: 59025

== ENCOUNTER 2025-05-08 10:28 | Inpatient (IN) | payer OTHER, MEDICAID, SELFPAY ==
[2025-05-08] VITALS (83 sets, daily range): BP systolic 112–139; BP diastolic 72–86; PULSE 0–98; RESP 16–20; TEMP 36.7–37; O2SAT 97–98
[2025-05-08 11:06] LABS: HCT 34.4 % (36.0-46.0); HGB 11.2 g/dL (11.2-15.7); MCH 26.8 pg (27.0-33.0); MCHC 32.6 % (32.0-36.0); MCV 82 fL (80-95); MPV 10.5 fL (8.0-11.0); Platelet Count 240 10^3/uL (130-400); RBC 4.18 10^6/uL (3.93-5.22); RDW 14.5 % (11.7-14.6); RDW-SD 43.0 fL; WBC 8.43 10^3/uL (4.4-10.8)
--- NOTE | 2025-05-08 11:26 | HPE_ITS ---
Date of service: 05/08/25 Time of Service: 11:26 Assessment and Plan Assessment and plan (1) Encounter for induction of labor: Status: Acute Assessment and plan: A: 29 yo G1 @ 39+6 wks, diet controlled GDM, planned IOL Unfavorable cvx with thakkar score of 1, category 1 tracing GBS neg, Rh+, increased risks for SD and PPH noted Risks/benefits of IOL reviewed with pt incl. possible arrest disorder or distress requiring c/s Pt is planning for epidural, consents to cervical ripening and IOL P: Admitted to L&D, CBC, and T&S, plan is for dual ripening Misoprostel per guidelines and hilario balloon to be placed Dr. Paige consulting (2) Gestational diabetes mellitus (GDM) affecting first : Status: Acute OB-HPI Labor/Delivery History of Present Illness Reason for Visit: IOL Chief Complaint: Scheduled Induction of Labor Indication for Induction: Gestational Diabetes (diet controlled). DIA Calculator Estimated Delivery Date Method Current WG Current Estimate 05/09/25 Ultrasound #1 39w 6d Other Estimates 05/01/25 LMP (Certain) 41w 0d History of Present Expected Delivery Route/Plan - CNM FOB/boyfriend - Giovany Lema (2 other children, healthy) BB yes to circ Rubella non-immune, offer MMR May want epidural; Giovany, Mom Apurva, thelma Suarez and Brooke Danielle for l abor support. GBS negative IOL tentatively booked for 05/08 Specific Issues/Plan 1. Works at the [employer], referred to [employer] for Medicaid assistance 2. cfDNA nml male, wait on CF until has insurance 3. BMI 32, HgbA1c 5.4, start low dose ASA @ [address]+ 2 yrs ago, treated at [facility], initial neg 5. PT referral for low back pain sent 01/11 6. Pap due 7. Rectal bleeding with BM at 24 weeks- tucks and hemorrhoid cream with HC after every BM, exam if no improvement. 8. 27 wk glucola 163, 3 hr [phone], GDM @ 28 wks, start QID home monitoring, DM educator consult done 03/05. 8a. 32 week growth US- 80% ile, PABLITO 26, daily postprandial elevations repor justin in pt's log. - 03/22/25: pt made dietary changes and has almost all normal FS 9. Mild anemia at 27 wks, hgb 10.8, start oral iron supplement. At 37 wks hgb=11.3 10. Borderline Polyhydramnios - PABLITO 26, repeat US in 4 weeks. testing weekly at 34 weeks 10a. 18 -PABLITO 18 , EFW 46 %ile. Assessment: History Reviewed & Current Informed Consent Informed Consent: Induction of Labor and Risk,Benefits,Alternatives Discussed Review of Systems All systems reviewed & are unremarkable except as noted in HPI and below PFSH All Active Problems (Updated 05/08/25 @ 11:21 by Leanne Del Rosario) Encounter for induction of labor (Acute) Migraine headache with aura (Acute) Gestational diabetes mellitus (GDM) affecting first (Acute) Back pain affecting (Acute) Rubella non-immune status, antepartum (Acute) Adult BMI 32.0-32.9 kg/sq m (Acute) (Acute) Frequent loose stools (Acute) I recommended patient obtain a PCP now that she has insurance. Medical History (Updated 05/08/25 @ 11:21 by Leanne Del Rosario) Abscess of left groin Labial cyst Polyhydramnios 37 weeks gestation of Dysuria History of chlamydia infection February 2024, treated Positive test Hx of urinary tract infection 08/2021 UCx: EColi. 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 Rx emperically. Begin nitrofurantoin for postcoital prophylaxis. Family History (Updated 02/25/25 @ 09:38 by Shweta Jimenez CNM) Sister Gestational diabetes Father Hypertension Paternal Uncle Diabetes Social History Smoking/Tobacco Use Status: Never Smoking risk assessment performed?: Yes Alcohol Intake: never Drug use: Never Housing: house Number of Children: 0 Education Level: high school Details: [employer] - Sean current occupation: [employer] Sexually active: Yes Do you feel safe in your relationship?: Yes History History 1 Para 0 Hx # Term Pregnancies 0 Multiple births 0 Hx # Pregnancies 0 Ectopic pregnancies 0 AB induced 0 Hx Number of Living Children 0 AB spontaneous 0 Meds Allergies and Home Medications Allergies Allergy/AdvReac Type Severity Reaction Status Date / Time No Known Allergies Allergy Verified 03/29/25 11:02 Home Medications ?Medication ?Instructions ?Recorded ?Confirmed ?Type vits no.126-ferrous fum tab PO 09/21/2404/26 History 28 mg iron-folic acid 800 mcg tablet (Classic ) aspirin 81 mg tablet,delayed 81 mg PO DAILY #90 tabs 0 10/22/24 04/26/25 Rx release ferrous sulfate 325 mg (65 mg 325 mg PO DAILY #30 tabs 02/08/25 04/26/25 Rx iron) tablet alcohol swabs (Alcohol Prep Pads) 1 pad topical QID #1 00 ea 02/15/25 04/26/25 Rx blood sugar diagnostic (FreeStyle #100 ea 02/15/2501/13 Rx Lite Strips) blood-glucose meter (FreeStyle #1 ea 02/15/25 04/26/25 Rx Lite Meter kit) lancets 28 gauge (FreeStyle #100 ea 02/15/25 04/26/25 Rx Lancets) docusate sodium 100 mg capsule 100 mg PO BID #60 caps 02/25/25 04/26/25 Rx (Colace) Exam Physical Exam Vital signs: Temp Pulse Resp BP Pulse Ox 98.5 F 79 18 112/72 97 05/08/25 10:40 05/08/25 10:43 05/08/25 10:40 05/08/25 10:40 05/08/25 10:43 Vital Signs Reviewed: Yes Constitutional Constitutional: no acute distress, average body habitus and cooperative Detailed Labor and Delivery Exam Dilation: 1 Effacement (%): 30 station: -4 Cervix position: posterior Consistency: firm THAKKAR Score(Cervical Ripeness Score): 1 Amniotic Membrane Status: Intact Monitor Mode: External Contraction Frequency(min): 1 in 10 minutes, pt does not appreciate Contraction Intensity: Mild Fetus A Heart Rate Baseline: 140 Monitor Accelerations: Present Monitor Decelerations: None Variability: Moderate (6-25 BPM) Categories: Category I Est. Weight: 7 lb 11.459 oz Est. Weight: 3500 gms HEENT Exam HEENT Exam: Normal Neck Exam Neck Exam: Normal Chest/Brest/Axilla Exam Chest Exam: Normal Breast Exam Breast Exam: Not Done Respiratory Exam Respiratory Exam: Normal Cardiovascular Exam Cardiovascular Exam: Normal Abdominal Exam Abdominal Exam: Normal (Gravid, nontender, S=D) Rectal Exam Rectal Exam: Normal Exam Exam: Normal Extremities Exam Extremities Exam: Normal Back/Spine/Pelvis Exam Back Exam: Normal Pelvis Adequate: Yes Skin Exam Skin Exam: Normal Neurological Exam Neurological Exam: Normal Psychiatric Exam Psychiatric Exam: Normal Results Results Group Beta Strep: Negative Blood Type: A+ Rubella Status: Nonimmune Varicella Immunity: Immune Abnormal Lab Findings: Abnormal Labs 05/08/25 10:47 Hct 34.4 L MCH 26.8 L Risk Assessment Risk for Shoulder Dystocia Historical/Initial OB: POSITIVE FOR: Pre- BMI>30; NEGATIVE FOR: Pelvic Abnormality, Previous Shoulder Dystocia or Previous Macrosomia 36 Weeks: POSITIVE FOR: Current Gestational DM 40 Weeks: NEGATIVE FOR: EFW> 4500 gms, Maternal Weight Gain >40lb or Post Dates Increased Risk?: Yes Delivery Plan @ 36wks: Delivery Plan @ 40 wks: , IOL Risk for Pre-Eclampsia Date Initiated/Initials: to start at 12 wks. JK Yes, if one or more: NEGATIVE FOR: Hx Pre-E/Gest HTN, Chronic HTN, Multiple Gestation, Pre-gestational DM, Renal Disease, Systemic Lupus or APA Syndrome Yes, if 2 or more: POSITIVE FOR: Nulliparity and BMI>30; NEGATIVE FOR: Age>= 35 yrs, >10yr btwn pregnancies, ethinicty, Mother/Sister w/ Pre-E or Previous IUGR Risk for Post- Hemorrhage Initial: NEGATIVE FOR: Multiple Gestation, Previous PPH, Known Clotting Deficiency, Grand Multiparity or Anticoagulation 36 Weeks: NEGATIVE FOR: Anemia, hgb<10, Low platelets(thrombocytopenia), Gestational HTN or Pre-E, Polyhydraminios or EFW>4500gms 40 Weeks: NEGATIVE FOR: Anemia, hgb<10, Low platelets (thrombocytopenia), Gestation HTN or Pre-E, Polyhydraminios or EFW>4500gms At Risk?: Yes (due to IOL process) Counseled re: Active Management: Yes Risks Reviewed Risks Reviewed Upon Admission: Yes
[2025-05-08] MEDS: miSOPROStol 50 MCG TAB PO (11:50)
[2025-05-08] MEDS: miSOPROStol 25 MCG TAB PO ×2 (16:18→20:31)
--- NOTE | 2025-05-08 20:15 | W.PM.OBNL1 ---
Date of service: 05/08/25 Time of Service: 20:16 Informed Consent Informed Consent: Induction of Labor and Risk,Benefits,Alternatives Discussed Pelvic Exam Dilation: 2.5 Effacement (%): 80 station: -4 Cervix Position: anterior Consistency: medium Comments: 60 ml hilario balloon remains in place Contractions Monitor Mode: External Contraction Frequency(min): clusters of 3-4 contractions every 4-6 minutes Intensity: Mild/Moderate Fetus A Monitor: External (US) Heart Rate Baseline: 140 Variability: Moderate (6-25 BPM) Categories: Category I Accelerations: 15 X 15 Decelerations: None Amniotic Membrane Status: Intact Assessment and Plan Assessment and plan (1) Encounter for induction of labor: Status: Acute Assessment and plan: A: IOL for GDM via dual cervical ripening starting with unfavorable benson score of 1 Category 1 tracing, 1 hr postprandial glucose 103 Miso 50 mcg and then 25 mcg given PO, hilario balloon in place since 1230 Category 1 tracing, membranes intact Benson score advanced to 7 with cervical changes but without descent P: Will give third dose of miso, 25 mcg PO Plan removal of hilario balloon at 0030 Pt is considering epidural anesthesia once the hilario is out AROM is planned if head descends otherwise consider pitocin augmentation Dr. Paige consulting Objective Abnormal lab results 05/08/25 Range/Units 10:47 Hct 34.4 L (36.0-46.0) % MCH 26.8 L (27.0-33.0) pg Temp Pulse Resp BP Pulse Ox 98.1 F 95 H 16 139/86 98 05/08/25 19:27 05/08/25 20:13 05/08/25 19:27 05/08/25 19:27 05/08/25 19:27 Laboratory Results WBC 8.43 10^3/uL (4.4-10.8) 05/08/25 10:47 RBC 4.18 10^6/uL (3.93-5.22) 05/08/25 10:47 Hgb 11.2 g/dL (11.2-15.7) 05/08/25 10:47 Hct 34.4 % (36.0-46.0) L 05/08/25 10:47 MCV 82 fL (80-95) 05/08/25 10:47 MCH 26.8 pg (27.0-33.0) L 05/08/25 10:47 MCHC 32.6 % (32.0-36.0) 05/08/25 10:47 RDW 14.5 % (11.7-14.6) 05/08/25 10:47 Plt Count 240 10^3/uL (130-400) 05/08/25 10:47 MPV 10.5 fL (8.0-11.0) 05/08/25 10:47 ABO/Rh A Positive 05/08/25 10:47 Antibody Screen NEGATIVE 05/08/25 10:47 Vital Signs Reviewed: Yes Subjective Interval history since last seen: Pt has generally been in bed most the day though has ambulated in her room, tolerating PO intake and voiding qs. Feeling increased contraction sensations which are not comfortable but pt is coping well, heating pad to back.
[2025-05-09] VITALS (305 sets, daily range): BP systolic 99–169; BP diastolic 55–87; PULSE 59–115; RESP 16–18; TEMP 36.6–37.9; O2SAT 98; BMI 33.9
--- NOTE | 2025-05-09 00:29 | PGE_ITS ---
Date of service: 05/09/25 Time of Service: 00:30 Informed Consent Informed Consent: Induction of Labor and Risk,Benefits,Alternatives Discussed Pelvic Exam Dilation: 3 Effacement (%): 90 station: -4 Cervix Position: anterior Consistency: medium BISHOPS Score(Cervical Ripeness Score): 8 Contractions Monitor Mode: External (using [place]) Contraction Frequency(min): irregular, ranging 2-5 minutes Intensity: Mild/Moderate Fetus A Monitor: External (US) ([place]) Heart Rate Baseline: 140 Variability: Moderate (6-25 BPM) Categories: Category I Accelerations: Present Decelerations: None Amniotic Membrane Status: Intact Assessment Note: head not engaged in pelvis, too high for AROM by CNM Assessment and Plan Assessment and plan (1) Encounter for induction of labor: Status: Acute Assessment and plan: A: Bolton removed @ 12 hrs (saline withdrawn to remove atraumatically from cvx) Benson score advanced to 8, head at -4 station Category 1 tracing. Discussed rest with pt and timing of epidural P: Final miso dose 25 mcg now for total 125 mcg given PO Pt will try Ambien to assist with sleep Will opt for pit augmentation in 4 hours if no spontaneous descent Pt plans epidural prior to further procedures but is coping well at this time Objective Vital Signs Reviewed: Yes Subjective Interval history since last seen: Pt feeling contractions across her mid and lower abd as well as back pain, contractions not much stronger than earlier in the evening though blood tinged vaginal mucous has been noted. Feeling tired, asking if an epidural would help her sleep but not sure she needs regional anesthesia for the contractions yet. RN has started IV access.
[2025-05-09] MEDS: Zolpidem 10 MG TAB PO (00:47)
[2025-05-09] MEDS: miSOPROStol 25 MCG TAB (00:47)
--- NOTE | 2025-05-09 06:52 | PGE_ITS ---
Date of service: 05/09/25 Time of Service: 06:52 Informed Consent Informed Consent: Induction of Labor, Regional Anesthesia and Risk,Benefits,Alternatives Discussed Pelvic Exam Dilation: 3 Effacement (%): 90 station: -3 Cervix Position: anterior Consistency: soft BISHOPS Score(Cervical Ripeness Score): 9 Contractions Monitor Mode: External ([place]) Contraction Frequency(min): irregular, ranging 1 -7 minutes Intensity: Mild Fetus A Monitor: External (US) ([place]) Heart Rate Baseline: 145 Variability: Moderate (6-25 BPM) Categories: Category I Accelerations: Present Decelerations: None Amniotic Membrane Status: Intact Assessment and Plan Assessment and plan (1) Encounter for induction of labor: Status: Acute Assessment and plan: A: HD#2, IOL for diet controlled GDM, cervical ripening completed, no active labor yet Pt requests early epidural anesthesia to be in place prior to AROM and pit mar Category 1 tracing, descent overnight to -3 station, Benson score is 9 Afebrile and normotensive; fasting fingerstick glucose this morning=91 P: Risks and benefits of regional anesthesia and continued IOL reviewed with pt Pt states she feels prepared to continue once her epidural is in place Discussed with pt increased risk of arrest of labor d/t GDM and poor descent Pt states she hopes to avoid a c/s but verbalizes understanding of possibility Objective Vital Signs Reviewed: Yes Subjective Interval history since last seen: Pt was able to get a few hours sleep after taking ambien, contractions have rece ded
--- NOTE | 2025-05-09 07:20 | ANES.PREOP_ITS ---
General Info Date of Service Date Performed: 05/09/25 Height: 5 ft 5 in Weight: 92.533 kg Body Mass Index (BMI): 33.9 Meds Allergies and Home Medications Allergies Allergy/AdvReac Type Severity Reaction Status Date / Time No Known Allergies Allergy Verified 03/29/25 11:02 Home Medication ?Medication ?Instructions ?Recorded vits no.126-ferrous fum tab PO 09/21/24 28 mg iron-folic acid 800 mcg tablet (Classic ) aspirin 81 mg tablet,delayed 81 mg PO DAILY #90 tabs 0 10/22/24 release ferrous sulfate 325 mg (65 mg 325 mg PO DAILY #30 tabs 02/08/25 iron) tablet alcohol swabs (Alcohol Prep Pads) 1 pad topical QID #1 00 ea 02/15/25 blood sugar diagnostic (FreeStyle #100 ea 02/15/25 Lite Strips) blood-glucose meter (FreeStyle #1 ea 02/15/25 Lite Meter kit) lancets 28 gauge (FreeStyle #100 ea 02/15/25 Lancets) docusate sodium 100 mg capsule 100 mg PO BID #60 caps 02/25/25 (Colace) Current Visit Medications: Current Medications Generic Name Dose Route Start Last Admin Trade Name Freq PRN Reason Stop Dose Admin Fentanyl/Ropivacaine 200 ml 05/09/25 07:00 Fentanyl/Ropivacaine 2 Mcg/Ml And 0.1% 200 Ml Cadd Cassette EP DIRECTED SANIA Ringer's Solution 1,000 mls @ 200 mls/hr 05/08/25 10:30 IV INFUSION SANIA Ringer's Solution 500 mls @ 500 mls/hr 05/09/25 06:53 IV 05/09/25 07:52 BOLUS ONE IV Miscellaneous Supplies 1 each 05/08/25 10:30 Iv Access IV DIRECTED SANIA Sodium Chloride 0 ml 05/08/25 10:29 Normal Saline Flush 10 Ml Syr IVP PRN PRN Sodium Chloride 0 ml 05/08/25 20:00 Normal Saline Flush 10 Ml Syr IVP BID SANIA Sodium Chloride 0 ml 05/08/25 10:29 Normal Saline 10 Ml Vial IJ DIRECTED PRN Terbutaline Sulfate 0.25 mg 05/08/25 10:29 Terbutaline 1 Mg/Ml Vial SC PRN PRN PFSH Active Problems Active Problems: Problem Status Onset Code Encounter for induction of labor Acute Z34.90 Migraine headache with aura Acute G43.109 Gestational diabetes mellitus (GDM) affecting first Acute O24.419 Back pain affecting Acute O99.891, M54.9 Rubella non-immune status, antepartum Acute O09.899, Z28.39 Adult BMI 32.0-32.9 kg/sq m Acute Z68.32 Acute Z34.90 Frequent loose stools Acute R19.7 Medical History Medical History (Updated 05/08/25 @ 11:21 by eLanne Del Rosario) Abscess of left groin Labial cyst Polyhydramnios 37 weeks gestation of Dysuria History of chlamydia infection February 2024, treated Positive test Hx of urinary tract infection 08/2021 UCx: EColi. 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 Rx emperically. Begin nitrofurantoin for postcoital prophylaxis. Tobacco Smoking/Tobacco Use Status: Never Passive smoking exposure: No Alcohol Alcohol Intake: never Substance Use Substance use: Never Prental History History 2 1 Para 0 Hx # Term Pregnancies 0 Multiple births 0 Hx # Pregnancies 0 Ectopic pregnancies 0 AB induced 0 Hx Number of Living Children 0 AB spontaneous 0 Vital Signs and Lab Results Vital Signs Most Recent Vital Signs in EMR: Most Recent Vital Signs Temp Pulse Resp BP Pulse Ox 36.7 C 96 H 16 99/55 L 98 05/09/25 03:25 05/09/25 07:17 05/09/25 03:25 05/09/25 03:25 05/08/25 19:27 Point of Care Results Point of Care Results: Finger Stick Blood Glucose 91 05/09/25 07:11 Lab Results 05/08/25 10:47 Blood Type / Crossmatch: 2 Antibody Screen NEGATIVE 05/08/25 Complete Blood Count: 2 WBC, (4.4-10.8) 8.43 10^3/uL 05/08/25, 10:47 RBC, (3.93-5.22) 4.18 10^6/uL 05/08/25, 10:47 Hgb, (11.2-15.7) 11.2 g/dL 05/08/25, 10:47 Hct, (36.0-46.0) 34.4 % L 05/08/25, 10:47 Plt Count, (130-400) 240 10^3/uL 05/08/25, 10:47 Complete Metabolic Panel: 2 Sodium, (136-145) 137 mmol/L 04/21/25, 16:14 Potassium, (3.5-5.1) 3.7 mmol/L 04/21/25, 16:14 Chloride, (98-107) 104 mmol/L 04/21/25, 16:14 Carbon Dioxide, (21.0-32.0) 21.4 mmol/L 04/21/25, 16 :14 BUN, (7-18) 6 mg/dL L 04/21/25, 16:14 Creatinine, (0.55-1.02) 0.5 mg/dL L 04/21/25, 16:14 Est GFR (CKD-EPI 2020), (mL/min/1.73m2) 130.12 04/21/25, 16:14 Calcium, (8.5-10.1) 8.9 mg/dL 04/21/25, 16:14 Albumin, (3.4-5.0) 2.5 g/dL L 04/21/25, 16:14 Glucose, (74-106) 74 mg/dL 04/21/25, 16:14 Hemoglobin A1c, (<5.7) 5.5 % 04/19/25, 12:15 Liver Function Panel: 2 ALT, (14-59) 24 U/L 04/21/25, 16:14 AST, (15-37) 29 U/L 04/21/25, 16:14 Anesthesia Assessment and Plan Anesthesia History Personal History: No History of Anesthesia Complications Family History: No Family History of Anesthesia Complications Exercise Tolerance Exercise Tolerance: Metabolic Equivalents>4 Pertinent Negatives Pertinent Negatives: No Symptoms of GERD, No Major Cardiovascular Symptoms or Complaints, No Major Pulmonary Symptoms or Complaints and No History of CVA/TIA Cardiac & Pulmonary Exam Cardiac Exam: Normal S1/S2 Heart Sounds Pulmonary Exam: Clear Bilateral Breath Sounds Implantable Cardiac Device Does patient have a Pacemaker or an ICD?: No Airway Exam Known Difficult Airway: No Mallampati Class: 2 Mouth Opening: Normal (> 3cm) Thyromental Distance: Greater than 3 cm Neck Range of Motion: Full ROM Neck Circumference: Normal Teeth Condition: Normal Dentition ASA Classification ASA Score: ASA 2 Emergency Case?: No NPO Status NPO Status: NPO Clears >2 hours, Solids >8 hours Status Status: Confirmed Anesthesia Plan Resuscitation Status: Full Code Anesthesia Technique: Epidural Anesthesia Airway Planned: Natural Airway Pain Management: Surgeon and patient request nerve block Monitors Used: Standard Monitors
[2025-05-09] MEDS: Lactated Ringers 500 ML IV (07:59)
[2025-05-09] MEDS: FentaNYL/ROPIvacaine 2 mcg/ml and 0.1% 200 ML CADD Cassette EP ×2 (08:23→17:50)
--- NOTE | 2025-05-09 08:26 | W.ANESNEU ---
Epidural/Spinal Catheter Date Performed: 05/09/25 Procedure Start: 08:01 Procedure Stop: 08:12 Requesting Provider: Leanne Del Rosario Procedure Location: Obstetrics Reason Performed: Labor Epidural Standard Monitors Applied: Blood Pressure, SpO2 and See EMR for corresponding vital signs Patient Position: Sitting Sedation Given (Indicate Dose Given): No Sedation given Patient Mental Status: Awake Sterility: Hand Hygiene, Surgical Cap, Surgical Mask, Sterile Gloves and Chlorhexidine Procedure Location: L3-L4 Interspace Epidural Needle: Tuohy 18 Gauge Needle Length: 3.5 Inch Needle Approach: Midline Epidural Procedure: Skin Prepped, Sterile Drape Placed, 1% Lidocaine to skin and subcutaneous tissue with 25G needle, Tuohy Needle placed, REGINALD to Saline Used, Epidural Catheter Placed, Negative Heme, Negative CSF Flow and Tuohy Needle Removed Catheter Placed?: Catheter Placed Test Dose (Indicate Dose Given): 5ml 1.5% Lidocaine with 1:200K Epinephrine Given and Negative Test Dose Loss of Resistance Depth (cm): 6 Catheter depth at skin (cm): 10 Dressing: [place] Dressing Placed, Mastisol Used and Dressing reinforced with Tape Epidural Provider Bolus (Indicate Dose Given): Total bolus dose given in 3-5 ml divided doses and Total Ropivacaine 0.1% with Fentanyl 2mcg/ml Given from pump. (ml) Dose:: 10 Additives (Indicate Dose Given ): None Infusion Medication: Medication Infusion Began Medication Infusion: Ropivacaine 0.1% with Fentanyl 2mcg/ml Maintenance Infusion Rate (ml/hour): 10 PCEA Bolus Dose (ml): 5 Block Level: N/A Paresthesia: Left (down left hip when placing catheter) Paresthesia Duration: Transient Ultrasound: Not Used Number of Attempts (See previous attempts in note section): 1 Procedure Tolerated: No Complications and Patient tolerated well Procedure Outcome: Successful Performed By: Deion Chase Other (not listed above): Mandy zamora
[2025-05-09] MEDS: Oxytocin/Normal Saline 30 UNIT/500 ML BAG 2 UNITS IV (09:45)
--- NOTE | 2025-05-09 11:08 | W.PM.OBNL1 ---
Date of service: 05/09/25 Time of Service: 11:08 Informed Consent Informed Consent: Induction of Labor, Risk,Benefits,Alternatives Discussed and Other (Pt consents to AROM) Pelvic Exam Dilation: 4 Effacement (%): 50 station: -3 Cervix Position: anterior Fetus A Monitor: External (US) ([place]) Heart Rate Baseline: 145 Variability: Moderate (6-25 BPM) Categories: Category I Accelerations: Present Decelerations: None Amniotic Membrane Status: Ruptured Rupture Method: Artifical Amniotic Fluid: Clear Amount: moderate Date of Membrane Rupture: 05/09/25 Time of Membrane Rupture: 10:59 Assessment and Plan Assessment and plan (1) Encounter for induction of labor: Status: Acute Assessment and plan: A: Pt consents to AROM, pitocin augmentation is at 4u/min Category 1 tracing continues, epidural effective P: Clear fluid returned on AROM, pt tolerated procedure well FHT remain cat 1, will continue pitocin augmentation Monitor for progression of labor Objective Vital Signs Reviewed: Yes Subjective Interval history since last seen: Resting in bed, visiting with family and friends present for support, appears comfortable, pt denies concerns or questions at this time
--- NOTE | 2025-05-09 13:22 | PGE_ITS ---
Date of service: 05/09/25 Time of Service: 13:22 Informed Consent Informed Consent: Induction of Labor and Risk,Benefits,Alternatives Discussed Pelvic Exam Dilation: 4.5 Effacement (%): 50 station: -2 Consistency: soft Contractions Monitor Mode: External Contraction Frequency(min): irregular q2-4 Fetus A Monitor: External (US) Heart Rate Baseline: 130 Variability: Moderate (6-25 BPM) Categories: Category I Accelerations: Present Decelerations: Early Amniotic Membrane Status: Ruptured Assessment and Plan Assessment and plan (1) Encounter for induction of labor: Status: Acute Assessment and plan: A: IOL in progress, epidural in place, pitocin at 8u/min Progressed to 4-5/50% anterior, soft, vtx -2/-3 station AROM for large amounts of fluid since 1100 Epidural adjusted to improve pt comfort by FASHION ILLUSTRATOR Category 1 tracing noted using NOVI monitor P: Continue to moritor for progress, discussed use of IUPC with pt Recheck for progress in 2 hrs, will advise IUPC placement if no appreciable cvx change or descent Will notify Dr. Moreno of pt status and plan of care Objective Temp Pulse Resp BP Pulse Ox 98.2 F 70 16 126/73 98 05/09/25 12:35 05/09/25 13:21 05/09/25 11:30 05/09/25 12:56 05/09/25 07:55 Laboratory Results WBC 8.43 10^3/uL (4.4-10.8) 05/08/25 10:47 RBC 4.18 10^6/uL (3.93-5.22) 05/08/25 10:47 Hgb 11.2 g/dL (11.2-15.7) 05/08/25 10:47 Hct 34.4 % (36.0-46.0) L 05/08/25 10:47 MCV 82 fL (80-95) 05/08/25 10:47 MCH 26.8 pg (27.0-33.0) L 05/08/25 10:47 MCHC 32.6 % (32.0-36.0) 05/08/25 10:47 RDW 14.5 % (11.7-14.6) 05/08/25 10:47 Plt Count 240 10^3/uL (130-400) 05/08/25 10:47 MPV 10.5 fL (8.0-11.0) 05/08/25 10:47 ABO/Rh A Positive 05/08/25 10:47 Antibody Screen NEGATIVE 05/08/25 10:47 Vital Signs Reviewed: Yes Objective Narrative Objective Narrative: Large amounts of amniotic fluid have been drainng Suggestion of early decels noted on tracing Pitocin @ 8u/min currently Subjective Interval history since last seen: pt reported increased discomfort, FASHION ILLUSTRATOR came and made adjustments with some minor improvement for pt comfort.
--- NOTE | 2025-05-09 14:33 | W.OBCONSULT ---
Date of service: 05/09/25 Time of Service: 14:34 Assessment and Plan Assessment and plan (1) Gestational diabetes: Status: Acute (2) Migraines: Status: Chronic (3) Obesity affecting : Status: Acute (4) 40 weeks gestation of : Status: Acute Assessment and plan: 05/09/2025 (Josh): Introduced myself to the patient along with the svp digital ad sales. We discussed the patient's labor progress as well as the shared concerns between the svp digital ad sales's and is Obstetric staff of potential macrosomia. We began to discuss the potential for consideration of section. We discussed that risks associated with include, but are not limited to, bleeding, blood clots to the legs into the lungs, damage to surrounding tissues, and infection. We discussed that it is still reasonable to currently pursue vaginal delivery based on the modest change between her recent exams and overall reassuring assessment. Patient states that she would like to continue to pursue vaginal delivery for now. We discussed placing an IUPC for accurate titration of Pitocin and repositioning for assistance with pain management. I will continue to be available. History of Present Illness Narrative: 29 yo at 40 0/7 as dated by 7 wk US (DIA 05/09/2025) undergoing induction of labor for GDMA1 at term. Patient was induced yesterday with Cytotec and cervical Bolton. Bolton was removed at midnight last night, and she has since been ruptured to clear fluid as of 11 am this morning, and augmented with Pitocin. She has an epidural in place; however, she is having difficulties with an area of pain in her right hip. Her blood sugars have been well controlled while on the unit without medication. Review of Systems All systems reviewed & are unremarkable except as noted in HPI and below PFSH All Active Problems (Updated 05/09/25 @ 14:57 by Etelvina Moreno, DO) 40 weeks gestation of (Acute) Obesity affecting (Acute) Migraines (Chronic) Gestational diabetes (Acute) Encounter for induction of labor (Acute) Migraine headache with aura (Acute) Gestational diabetes mellitus (GDM) affecting first (Acute) Back pain affecting (Acute) Rubella non-immune status, antepartum (Acute) Adult BMI 32.0-32.9 kg/sq m (Acute) (Acute) Frequent loose stools (Acute) I recommended patient obtain a PCP now that she has insurance. Medical History Abscess of left groin Labial cyst Polyhydramnios 37 weeks gestation of Dysuria History of chlamydia infection February 2024, treated Positive test Hx of urinary tract infection 08/2021 UCx: EColi. 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 Rx emperically. Begin nitrofurantoin for postcoital prophylaxis. 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 [employer] Sexually active: Yes Do you feel safe in your relationship?: Yes History History 1 Para 0 Hx # Term Pregnancies 0 Multiple births 0 Hx # Pregnancies 0 Ectopic pregnancies 0 AB induced 0 Hx Number of Living Children 0 AB spontaneous 0 Exam Narrative Exam Narrative: general: Well nourished female, somewhat dissheveled pulm: No overt respiratory distress abd: non-tender, gravid ext: +1 edema noted equally bilaterally : Most recently performed 1300 and was found to be 4 / 50 / -2 FHT: Cat 1 [place]: irregular Results Last Vital Signs Temp 98.2 F 05/09/25 13:30 Pulse 69 05/09/25 14:29 Resp 17 05/09/25 13:30 BP 137/79 05/09/25 14:26 Pulse Ox 98 05/09/25 07:55 Labs 05/08/25 10:47 Labs: Rubella non-immune; GBS negative status
[2025-05-09] MEDS: Lactated Ringers 1,000 ML 125 ML IV ×2 (14:47→20:31)
--- NOTE | 2025-05-09 15:41 | W.ANESNEU ---
Epidural/Spinal Catheter Date Performed: 05/09/25 Procedure Start: 15:17 Procedure Stop: 15:40 Requesting Provider: Leanne Del Rosario Procedure Location: Obstetrics Reason Performed: Labor Epidural Standard Monitors Applied: Blood Pressure, SpO2 and See EMR for corresponding vital signs Patient Position: Sitting Sedation Given (Indicate Dose Given): No Sedation given Patient Mental Status: Awake Sterility: Hand Hygiene, Surgical Cap, Surgical Mask, Sterile Gloves, Sterile Drape/Sheet and Betadine Procedure Location: L3-L4 Interspace Epidural Needle: Tuohy 18 Gauge Needle Length: 3.5 Inch Needle Approach: Midline Epidural Procedure: Skin Prepped, Sterile Drape Placed, 1% Lidocaine to skin and subcutaneous tissue with 25G needle, Tuohy Needle placed, REGINALD to Saline Used, Epidural Catheter Placed, Negative Heme, Negative CSF Flow and Tuohy Needle Removed Catheter Placed?: Catheter Placed Test Dose (Indicate Dose Given): 5ml 1.5% Lidocaine with 1:200K Epinephrine Given and Negative Test Dose Loss of Resistance Depth (cm): 6 Catheter depth at skin (cm): 12 Dressing: [place] Dressing Placed, Mastisol Used and Dressing reinforced with Tape Epidural Provider Bolus (Indicate Dose Given): Total bolus dose given in 3-5 ml divided doses and Total Ropivacaine 0.1% with Fentanyl 2mcg/ml Given from pump. (ml) Dose:: 5ml Additives (Indicate Dose Given ): None Infusion Medication: Medication Infusion Began Medication Infusion: Ropivacaine 0.1% with Fentanyl 2mcg/ml Maintenance Infusion Rate (ml/hour): 12 PCEA Bolus Dose (ml): 6 Block Level: N/A Paresthesia: None Ultrasound: Not Used Number of Attempts (See previous attempts in note section): 1 Procedure Tolerated: No Complications and Patient tolerated well Procedure Outcome: Successful Procedure Comment:: pt c/o R lower abd pain and motor function remained intact in R leg. attempted increased in infusion and repositioning. options explained with patient and she opted to reattempt epidural. Performed By: Mandy Flynn Supervised By: Deion Chase
--- NOTE | 2025-05-09 18:38 | W.PM.OBNL1 ---
Date of service: 05/09/25 Time of Service: 18:30 Informed Consent Informed Consent: Induction of Labor and Risk,Benefits,Alternatives Discussed Pelvic Exam Dilation: 8 Effacement (%): 90 station: -1 Contractions Monitor Mode: Internal Contraction Frequency(min): q2-4 IUPC resting tone (mmHg): 20 IUPC [place] units: 120 Fetus A Monitor: External (US) Heart Rate Baseline: 145 Variability: Moderate (6-25 BPM) Categories: Category I Accelerations: Present Decelerations: Early Amniotic Membrane Status: Ruptured Assessment and Plan Assessment and plan (1) Encounter for induction of labor: Status: Acute Assessment and plan: A: IOL continuing, pitocin at 14u/min, epidural anesthesia more effective after replacement IUPC placed to assist with pitocin titration Category 1 tracing overall, pt resting mostly on right side Bloody show noted, good progress in dilation and descent palpable P: Continue pitocin augmentation, position for comfort and facilitate rotation/descent Dr. Moreno aware of pt status Continue to monitor for progression Objective Temp Pulse Resp BP Pulse Ox 98.2 F 83 17 113/65 98 05/09/25 17:16 05/09/25 19:17 05/09/25 17:30 05/09/25 19:17 05/09/25 07:55 Laboratory Results WBC 8.43 10^3/uL (4.4-10.8) 05/08/25 10:47 RBC 4.18 10^6/uL (3.93-5.22) 05/08/25 10:47 Hgb 11.2 g/dL (11.2-15.7) 05/08/25 10:47 Hct 34.4 % (36.0-46.0) L 05/08/25 10:47 MCV 82 fL (80-95) 05/08/25 10:47 MCH 26.8 pg (27.0-33.0) L 05/08/25 10:47 MCHC 32.6 % (32.0-36.0) 05/08/25 10:47 RDW 14.5 % (11.7-14.6) 05/08/25 10:47 Plt Count 240 10^3/uL (130-400) 05/08/25 10:47 MPV 10.5 fL (8.0-11.0) 05/08/25 10:47 ABO/Rh A Positive 05/08/25 10:47 Antibody Screen NEGATIVE 05/08/25 10:47 Vital Signs Reviewed: Yes Subjective Interval history since last seen: 2nd epidural is more effective than first though reports LLQ pain with contractions. Trying nitrous but it is not very helpful, has heating pad to area.
--- NOTE | 2025-05-09 22:21 | W.PM.OBNL1 ---
Date of service: 05/09/25 Time of Service: 22:21 Informed Consent Informed Consent: Induction of Labor and Risk,Benefits,Alternatives Discussed Pelvic Exam Dilation: 10 station: +3 Contractions Monitor Mode: Internal Contraction Frequency(min): q2-4 IUPC resting tone (mmHg): 20 IUPC [place] units: 140 Fetus A Monitor: External ([place]) Heart Rate Baseline: 145 Variability: Moderate (6-25 BPM) Categories: Category I Accelerations: Present Decelerations: Early Amniotic Membrane Status: Ruptured Assessment and Plan Assessment and plan (1) Encounter for induction of labor: Status: Acute Assessment and plan: A: 2nd stage, huddle completed, category 1 tracing, epidural anesthesia, pitocin @ 14u/min P: Pt beginning to push with coaching and support Small amt of caput palpable and skull just behind pubic arch Risks for SD and PPH discussed with nursing and mitigation steps in place Anticipate vaginal delivery, Dr. Moreno inhouse Objective Temp Pulse Resp BP Pulse Ox 99.2 F 83 16 137/67 98 05/09/25 21:14 05/09/25 22:18 05/09/25 21:14 05/09/25 22:18 05/09/25 07:55 Laboratory Results WBC 8.43 10^3/uL (4.4-10.8) 05/08/25 10:47 RBC 4.18 10^6/uL (3.93-5.22) 05/08/25 10:47 Hgb 11.2 g/dL (11.2-15.7) 05/08/25 10:47 Hct 34.4 % (36.0-46.0) L 05/08/25 10:47 MCV 82 fL (80-95) 05/08/25 10:47 MCH 26.8 pg (27.0-33.0) L 05/08/25 10:47 MCHC 32.6 % (32.0-36.0) 05/08/25 10:47 RDW 14.5 % (11.7-14.6) 05/08/25 10:47 Plt Count 240 10^3/uL (130-400) 05/08/25 10:47 MPV 10.5 fL (8.0-11.0) 05/08/25 10:47 ABO/Rh A Positive 05/08/25 10:47 Antibody Screen NEGATIVE 05/08/25 10:47 Vital Signs Reviewed: Yes Subjective Interval history since last seen: Pt quite comfortable with epidural working well, responding well to instructions for pushing in 2nd stage
[2025-05-10] VITALS (55 sets, daily range): BP systolic 101–137; BP diastolic 55–75; PULSE 66–130; RESP 16–18; TEMP 36.6–37.3; O2SAT 93–99
--- NOTE | 2025-05-10 01:07 | OBVDS_ITS ---
Date of service: 05/10/25 Time of Service: 01:07 OB Labor/ Delivery Information Baby A Delivery Delivery Method: Assisted Presentation: Cephalic Cephalic Position: Vertex Vertex Position: Right Occipital Anterior Cord Description-Baby A: 3 Vessels Amniotic Fluid: Clear Quantitative Blood Loss: 225 Delivery Outcome: Liveborn Note: 29 yo G1 now P1001 underwent a 40 week vacuum-assisted vaginal delivery to an 8 lbs 5 oz viable baby boy ([place]) of an intact perineum under epidural anesthesia. I was called to the room by the gas engineer for concerns of poor progression. Upon entering the room, I found the patient laboring with the nurses and support team. SVE found the baby +2, and the mother made good progress with coached pushing efforts. The general labor forklift operator was requested to attend the delivery. The patient had reportedly voided as recently as an hour prior. Assessment of the pelvic cavity was reassuring for adequate space. We discussed the potential need for vacuum based on maternal exhaustion and intermittently concerning monitoring. We discussed that vacuum-assisted vaginal delivery is associated with an increased risk of lacerations both for the mother as well as the tissue. They are also associated with bleeding under and within the skull. Mother verbalized understanding and consented if it was deemed necessary. We began pushing and she maintained slow, but consistent progression with active coaching. By the time she was , the heart tones began to more persistently stay in the 90's, at which point we discussed assisting with the vacuum. She consented to this. Patient was expected to have about an 8 lbs baby. Assessment of the scalp was suggestive of JUAN PABLO positioning. The kiwi vacuum was carefully placed 2 cm anterior to the posterior fontanelle and centered over the sagittal suture and then suction was increased to the green zone with her next push. Her pushing effort was facilitated, and the head delivered in JUAN PABLO without issue. The vacuum was immediately released, and the patient was instructed not to push. I attempted delivery of the anterior shoulder but was unsuccessful, and a shoulder dystocia was called. The mother was positioned into McRobert's position and suprapubic pressure was applied appropriately by the gas engineer. When this failed to release the arm, I attempted delivery of the posterior shoulder. With this attempt, a loose nuchal cord was appreciated and easily reduced. At this point, I again attempted to deliver the posterior shoulder. I was able to get the posterior shoulder to shrug and then rotate approximately 45 degrees with a clockwise pressure on the posterior body of the posterior shoulder. This succsseful dislodged the shoulder and allowed for delivery of the remainder of the body. The entirety of the shoulder dystocia lasted 45 seconds. Upon delivery, the mouth and nose were bulb suctioned. The cord was promptly double clamped and cut by the gas engineer, and the baby was immediately placed into the awaiting warmer. A section of cord was co llected and set aside. Pitocin was opened for bolusing. The placenta delivered within 15 minutes of delivery without issue and fully intact. A modest second degree perineal laceration was repaired with 2-0 Vicryl. Good hemostasis was appreciated. Based on mother feeling warm during the delivery and borderline temperatures noticed in the mother throughout the pushing efforts as well as in the baby upon delivery, we discussed doing one round of Ampicillin and Gentamycin. The patient was agreeable to this. Shortly after delivery, the nurse reported a moderate, persistent trickle of vaginal bleeding, for which transexamic acid was ordered. Mother and baby tolerated the procedure well. Providers Nurse Business Objects Consultant: Leanne Del Rosario Nurse: Celsa Poe Nurse: Lisa Del Rosario Labor/Delivery Information Number of Babies in Womb: 1 Steroids Given: None Reason Steroids Not Administered: N/A Group Beta Strep: Negative Antibiotics Administered: No Rubella Status: Nonimmune Blood Type: A+ Varicella Immunity: Immune Shoulder Dystocia: Yes Stages of Labor Complete Dilatation Date: 05/09/25 Complete Dilatation Time: 22:00 ROM Baby A: 05/09/25 ROM Baby A: 10:59 ROM Total Time- Baby A: [id number] Delivery Date-Baby A: 05/10/25 Infant Delivery Time-Baby A: 00:28 Labor Stage 2 Duration: 2 hours and 28 minutes Placenta Delivery Date-Baby A: 05/09/25 Placenta Delivery Time-Baby A: 00:36 Labor-Stage 3 Duration: -1432 minutes Placenta Status: Delivered Baby A Infant Gender: Male Gestational Status: Term (39-41.6 wks) Gestational Age in Weeks/Days: 40 Weeks and 1 Days weight: 8333 lb 7.569 oz Length-Baby A: 20.87 in Head Circumference-Baby A: 13.39 in Shoulder Dystocia Delivery Times Date of Delivery of Head: 05/10/25 Time of Delivery of the Head: 00:27 Head to Body Delivery Interval(minutes): 1 Arm Under Sympisis Arm Under Symphisis: Right
[2025-05-10] MEDS: TRANEXAMIC ACID/SOD. CHL. 1,000 MG/100 ML BAG 600 MG IVPB (01:17)
[2025-05-10] MEDS: AMPICILLIN SODIUM 2 GM in Normal Saline 100 ML IVPB (01:37)
[2025-05-10] MEDS: Dibucaine 1% 28 GM TUBE TP ×2 (02:27→20:18)
[2025-05-10] MEDS: Hamamelis Leaf/Glycerin 100 EACH BOX PR (02:27)
[2025-05-10] MEDS: Ibuprofen 600 MG TAB PO ×3 (02:59→20:00)
[2025-05-10] MEDS: Acetaminophen 325 MG TAB 650 MG PO ×3 (02:59→20:00)
[2025-05-10] MEDS: GENTAMICIN 120 MG in Normal Saline 100 ML 200 MG IVPB (03:16)
[2025-05-10] MEDS: Docusate Sodium 100 MG CAP PO ×2 (09:37→20:18)
[2025-05-11] MEDS: Ibuprofen 600 MG TAB PO (06:15)
[2025-05-11] MEDS: Acetaminophen 325 MG TAB 650 MG PO (06:15)
--- NOTE | 2025-05-11 08:00 | W.ANESPOSTOP ---
Postoperative Evaluation Date, Time and Location Date Performed: 05/11/25 Time Performed: 08:00 Patient Location: Other Vital Signs Most Recent Imported Vital Signs: Most Recent Vital Signs Temp Pulse Resp BP Pulse Ox 36.8 C 83 17 121/75 98 05/10/25 20:00 05/10/25 20:00 05/10/25 20:00 05/10/25 20:00 05/10/25 20:00 Pain Score Most Recent Pain Score: Most Recent Pain Score Pain Level 0 05/09/25 21:00 Assessment Mental Status: Awake (Alert & Oriented to Patient Baseline) Airway and Respiratory Function: Patent airway with normal (patient baseline) respiratory exam Cardiovascular Function: Hemodynamically Stable Hydration Status: Adequately Hydrated Nausea & Vomiting: No Nausea or Vomiting Pain: Pain is tolerable per patient Peripheral Nerve Block: Patient did not receive a nerve block Postoperative Comments:: Discharged home without apparent complications.
[2025-05-11 08:07] VITALS: BP 122/78; PULSE 67; RESP 16; TEMP 36.8; O2SAT 97
--- NOTE | 2025-05-11 11:14 | OBPPV_ITS ---
Date of service: 05/11/25 Time of Service: 11:14 Assessment and Plan Assessment and plan (1) Status post vacuum-assisted vaginal delivery: Status: Acute Assessment and plan: 29 yo G1 now P1001 s/p 40 wk VA-VD complicated severe shoulder dystocia on 05/09 PM - Rh+ / Rub NI / VZV I / GBS neg - complicated by GDMA1, obesity, anemia - Intrapartum course complicated by severe shoulder dystocia - course uncomplicated - Meeting all milestones appropriately - Lochia appropriate - Formula feeding; discussed benefits of and encouraged - Pap smear due - Discussed depression and encouraged low threshold for seeking immediate medical attention if concerns arise; no current concerns - Contraceptive planning: OCP's; discussed avoiding estrogen-containing co ntraception for the first 6 weeks. Informed of LARCs. - Counseled on pelvic rest for a full 6 weeks - Discharge planning: today - - - - - - - - - - - - - 05/11/2025 (Josh): Patient found to be doing very well. She is eating, ambulating, and urinating all without issue. Lochia is appropriate. She is doing well with her baby. Counseled on contraceptive options. Discussed delivery course; all questions answered to patient's satisfaction. Encouraged to inform future providers of shoulder dystocia at time of delivery. precautions reviewed. To follow up at 2-4 weeks and again at 6 weeks, but encouraged to reach out to clinic anytime with any concerns that may arise. (2) Shoulder dystocia during labor and delivery: Exam Physical Exam Vital signs: Temp Pulse Resp BP Pulse Ox 98.2 F 67 16 122/78 97 05/11/25 08:07 05/11/25 08:07 05/11/25 08:07 05/11/25 08:07 05/11/25 08:07 Narrative: general: Well nourished female in no immedate distress pulm: No overt respiratory distress Abd: Soft, non-tender; fundus firm and low Ext: trace edema noted equally bilaterally psych: Appropriate, cooperative Results Hemoglobin/Hematocrit: Hgb 11.2 g/dL (11.2-15.7) 05/08/25 10:47 Hct 34.4 % (36.0-46.0) L 05/08/25 10:47 Abnormal Lab Findings: Abnormal Labs 05/08/25 10:47 Hct 34.4 L MCH 26.8 L
--- NOTE | 2025-05-11 11:43 | PDOC.DSDIS_ITS ---
Date of service: 05/11/25 Discharge Plan Disposition Patient Disposition: Home Condition: Good Discharge Details Reason For Visit: IOL Admit Date/Time: 05/08/25 10:28 Admit Provider: Leanne Del Rosario Attending Provider: Leanne Del Rosario Primary Care Provider: Unknown,Unknown Hospital Course Hospital Course: 29 yo G1 now P1001 s/p 40 wk VA-VD complicated severe shoulder dystocia on 05/09 PM - Rh+ / Rub NI / VZV I / GBS neg - complicated by GDMA1, obesity, anemia - Intrapartum course complicated by severe shoulder dystocia - course uncomplicated - Meeting all milestones appropriately - Lochia appropriate - Formula feeding; discussed benefits of and encouraged - Pap smear due - Discussed depression and encouraged low threshold for seeking immediate medical attention if concerns arise; no current concerns - Contraceptive planning: OCP's; discussed avoiding estrogen-containing contraception for the first 6 weeks. Informed of LARCs. - Counseled on pelvic rest for a full 6 weeks - Discharge plannin/19 AM - - - - - - - - - - - - - - - 29 yo at 40 0/7 as dated by 7 wk US (DIA 05/09/2025) underwent induction of labor for GDMA1 at term. Patient was induced 05/08/2025 with Cytotec and cervical Bolton. Bolton was removed at midnight last night, and she has since been ruptured to clear fluid as of 11 am the morning of 05/09/2025, and augmented with Pitocin. She has an epidural in place that was removed and replaced over the course of her induction process. She pushed for approximately an hour and a half when the mobile application engineer requested my intervention. I continued to push with the patient. On the morning of 05/10, she underwent a vacuum-assisted vaginal delivery complicated by a severe shoulder dystocia (resolved with posterior- shoulder shrug; lasted 45 seconds). She had a first degree perineal tear which was repaired without issue. She did receive a dose of TXA for persistent bleeding which resolved the issue without a problem. Her recovery course was otherwise unremarkable. She was seen this morning and found to be doing well. She was counseled to have a low threshold for seeking immediate medical evaluation, and she was scheduled for out-patient follow up. Home Meds and New Rx's Prescriptions: New docusate sodium [Colace] 100 mg Capsule 100 mg PO BID PRN PRN5 Days Qty: 20 0RF ibuprofen 600 mg Tablet 600 mg PO Q6H PRN PRN5 Days Qty: 30 0RF norethindrone (contraceptive) [Shila] 0.35 mg tablet 0.35 mg PO DAILY 90 Days Qty: 90 4RF Dermoplast 20 % aerosol 1 applic topical TID-QID 5 Days Qty: 78 1RF Continued docusate sodium [Colace] 100 mg capsule 100 mg PO BID Qty: 60 5RF Discontinued aspirin 81 mg tablet,delayed release (DR/EC) 81 mg PO DAILY Qty: 90 3RF Rx Instructions: take one tab daily alternating with 2 tabs every other day alcohol swabs [Alcohol Prep Pads] Pads, Medicated 1 pad topical QID Qty: 100 4RF No Action Classic 28 mg iron- 800 mcg tablet PO ferrous sulfate 325 mg (65 mg iron) tablet 325 mg PO DAILY Qty: 30 5RF (DME) blood-glucose meter [FreeStyle Lite Meter] Kit See Rx Instructions .Route Qty: 1 0RF Rx Instructions: As directed (DME) FreeStyle Lite Strips Strip See Rx Instructions .Route Qty: 100 2RF Rx Instructions: QID (DME) lancets [FreeStyle Lancets] 28 gauge misc See Rx Instructions .Route Qty: 100 4RF Rx Instructions: QID Discharge Instructions Instructions: Vaginal Delivery (DC) Additional Instructions: ? Eat a well-rounded diet ? Ambulate regularly and engage in light activity while avoiding repeated heavy lifting (over 10 pounds) ? Take your medications as prescribed ? Please be sure to attend your follow-up visits ? If you have an incision, be sure to keep it clean and dry using simple soap and water; avoid scrubbing to avoid damage to suture ? If you have been prescribed narcotics such as tramadol or oxycodone or [place], please note these medications have an addictive potential and should be used sparingly.? Please discard of any leftover medication either with your local pharmacy or by flushing the medication.? Do not share these medications with other individuals, and have a low threshold for seeking immediate medical evaluation if you experience any sleepiness, headaches, or any other concerns while using these medications. ? Please do not insert anything vaginally, including but not limited to, tampons, douching, or sexual intercourse, for a full 8 weeks and/or until you are medically cleared. ? If you have any concerns including fevers/chills, lightheadedness, visual changes, persistent headaches unresponsive to Tylenol, persistent nausea/vomiting, persistent abdominal pain, bruising and or leakage from your incision sites, excessive vaginal bleeding, or any other concerns, please have a low threshold for seeking immediate medical evaluation and/or reaching out to our clinic at [phone]. ? If you find yourself having crying spells you cannot explain, loss of appetite, persistent inability to sleep, lack of bonding with your baby, and/or general and persistent sadness, please feel free to reach out to our clinic immediately at [phone]. Referrals: Etelvina Moreno DO [OSTEOPATHIC DOCTOR, Obstetrics] Activity:: pelvic rest x6 weeks Equipment/Supplies:: No Equipment Needed Diet:: Normal Diet Discharge Orders Discharge Orders: Discharge Order (Routine); Ordered 05/11/25 Ordered By: Etelvina Moreno DS: Diagnosis Discharge Diagnosis (1) Status post vacuum-assisted vaginal delivery: Status: Acute (2) Shoulder dystocia during labor and delivery:
== END 2025-05-11 12:45 | disposition home or self-care (01) | DRG 806 ==
PROVIDERS: Admitting Provider Advanced Practice Midwife; Visit Provider Advanced Practice Midwife
DX: O24.410 Gestational diabetes mellitus in pregnancy, diet controlled (principal); O99.354 Diseases of the nervous system complicating childbirth; Z37.0 Single live birth; O99.214 Obesity complicating childbirth; G43.109 Migraine with aura, not intractable, without status migrainosus; Z3A.40 40 weeks gestation of pregnancy; O99.02 Anemia complicating childbirth; D64.9 Anemia, unspecified; O75.81 Maternal exhaustion complicating labor and delivery; O66.0 Obstructed labor due to shoulder dystocia; O70.1 Second degree perineal laceration during delivery; O40.3XX0 Polyhydramnios, third trimester, not applicable or unspecified
CPT/HCPCS: 59200; 36415; 85027; 86850; 86900; 86901; 59025; J0290; J1580; J3490

== ENCOUNTER 2025-05-27 12:58 | Outpatient (REF) | payer MEDICAID, SELFPAY | END 2025-05-27 12:59 | disposition home or self-care (01) | LOC: LBN 12:58 | PROVIDERS: Visit Provider Obstetrics & Gynecology | DX: Z12.4 Encounter for screening for malignant neoplasm of cervix (principal) | CPT/HCPCS: 88142 ==